=== PATIENT | female | born 1975 | race Caucasian/White ===

== ENCOUNTER 2018-02-16 09:46 | Observation (INO) | payer MEDICAID, SELFPAY ==
[2018-02-16] VITALS (9 sets, daily range): BP systolic 112–166; BP diastolic 71–94; PULSE 61–81; RESP 14–18; TEMP 36.2–36.7; O2SAT 95–100; BMI 33.6; BMI 33.8
--- NOTE | 2018-02-16 09:55 | CT_ITS ---
STUDY: CT ABDOMEN AND PELVIS WITHOUT CONTRAST REASON FOR EXAM: Female, 43 years old. RT FLANK PAIN, HX KS-LITHOTRIPSY RADIATION DOSAGE (If Supplied By Facility): CTDIvol = ( 20.14 ) mGy, DLP = ( 991.22 ) mGycm TECHNIQUE: Transaxial images were obtained from the dome of the diaphragm to the symphysis pubis without oral contrast, and without intravenous contrast. Sagittal and coronal images were reconstructed. Individualized dose optimization techniques were used for this CT. COMPARISON: None. FINDINGS: The visualized lung bases are unremarkable. The visualized portions of the heart are within normal limits. Normal liver. Normal gallbladder and extrahepatic biliary system. Normal spleen. Normal pancreas. Normal bilateral adrenal glands. There is punctate nonobstructing calculus seen in association with the lower pole the right kidney. This calculus measures approximately 1 mm. No other renal calculi are noted. The left kidney has an unremarkable appearance. There is no evidence of hydronephrosis or hydroureter. No ureteral calculi. Normal visualized stomach. Normal small intestine. Normal colon. There is non-visualization of the appendix. Normal abdominal aorta. Normal inferior vena cava. Normal retroperitoneum. Normal urinary bladder. I do note calcification seen in association with the region of the urethra, consider urethral stones. For instance refer to axial image #161 and sagittal image #78. The calcification in this region appears multifocal encompassing an overall area of 1.5 cm transverse and an anterior posterior dimension of 1 cm. Consider also possibility of urethral diverticulum. Urethrogram may be helpful in further evaluation. Normal visualized uterus. There is a dominant left follicle measuring approximately 2.9 cm. Normal abdominal wall. Normal osseous structures. CT/Abdomen/Pelvis without Cont IMPRESSION: Punctate nephrolithiasis of the right kidney. I do not however identify evidence of ureteral stone or obstruction. I do note calcification seen in association with the region of the urethra, consider urethral stones. Electronically Signed: Una Izquierdo MD at 10:55 EDT Tel , Service support ,
[2018-02-16 10:15] LABS: Absolute Lymphocyte Count 1.95 X10^3/ul (0.83-4.51); Absolute Neutrophil Count 4.3 X10^3/uL (2.0-7.7); Basophil# 0.02 X10^3/uL; Basophil% 0.3 % (0-1); Eosinophil# 0.04 X10^3/uL; Eosinophils% 0.6 % (0-5); Hematocrit 38.4 % (37-47); Lymphocyte # 1.95 X10^3/ul (4.0); Lymphocyte % 27.6 % (19-41); Mean Corp Hgb Conc 33.9 g/gl (32-36); Mean Corpuscular Hgb 30.8 pg (27.0-32.0); Mean Platelet Vol. 10.4 fl (6.2-12.0); Monocyte# 0.72 X10^3/uL; Monocyte% 10.2 % (0-10); Neutrophil # 4.32 X10^3/uL (2.7-7.7); Platelet Count 171 K/mm3 (150-450); RBC Distribution Width CV 13.6 % (11.6-14.6); RBC Distribution Width SD 44.7 fl (35.1-43.9); Red Blood Count 4.22 M/mm3 (4.2-5.4); White Blood Count 7.1 K/mm3 (4.4-11.0)
[2018-02-16] MEDS: Ondansetron 4 MG/2 ML Vial IV (10:15)
[2018-02-16] MEDS: 0.9% Normal Saline 1,000 ML 125 ML IV (10:15)
[2018-02-16] MEDS: Morphine 4 MG/ML Syringe IV ×3 (10:15→22:02)
[2018-02-16 10:16] LABS: POSITIVE COUNT NO; POSITIVE DIFFERENTIAL NO; POSITIVE MORPHOLOGY NO
[2018-02-16] MEDS: Ketorolac 30 MG/ML Syringe IV (10:16)
[2018-02-16 10:30] LABS: Anion Gap 9 (5-15); BUN 14 mg/dL (7-18); BUN/Creat Ratio 16.3 RATIO (10-20); Calcium,Total 8.4 mg/dL (8.5-10.1); Chloride 109 mmol/L (98-107); Creatinine, Serum 0.86 mg/dL (0.55-1.02); EST Glomerular Filtration Rate 76 mL/min (>60); Est Glom Filt Rate - Afr Amer 92 mL/min (>60); Estimated Creatinine Clearance 68.33 ml/min; Glucose 87 mg/dL (74-106); Potassium 4.1 mmol/L (3.5-5.1); Sodium Level 142 mmol/L (136-145)
[2018-02-16 10:46] LABS: Bacteria 0 SEEN /hpf (None Seen); Mucous, Urine 0 SEEN /hpf (<or=2+)
[2018-02-16 10:48] LABS: Color, Urine Yellow (Yellow); Glucose, Dipstick Normal (Normal); Ketone-Dipstick Negative (Negative); Leukocyte Esterase-Dipstick Negative /ul (Negative); Nitrite-Dipstick Negative (Negative); Occult Blood-Urine Negative /ul (Negative); Protein-Dipstick Negative (Negative); Urine Bilirubin Dipstick Negative (Negative); Urine Clarity Sl. Cloudy (Clear); Urine Urobilinogen Normal (Normal)
[2018-02-16 11:00] LABS: Red Blood Cells-Urine 0-5 SEEN /hpf (0-5); Squamous Epithelial Cells - UA 0-5 SEEN /hpf (5-10); White Blood Cells 0-5 SEEN /hpf (0-5)
[2018-02-16] MEDS: HYDROmorphone 1 MG/ML Syringe IV ×2 (11:57→13:35)
--- NOTE | 2018-02-16 13:16 | ED.DCSUM_ITS ---
- ER Visit Summary Date of Service: 02/16/18 Chief Complaint: [Right-sided flank pain] History of Present Illness: The patient is a 43 F [presents the emergency department with right-sided flank pain started 4 AM. Patient rates her pain a 7 or 8 out of 10 currently. Patient describes the pain in her right back that radiates to the right abdomen. Patient denies urinary symptoms. Patient has had similar pains in the past with kidney stones. Patient denies any fever. Patient states that she is on the verge of vomiting.] Physical Examination: [HEENT-PERRLA, EOMI. Cranial nerves II through XII grossly intact. TMs clear. Mucous membranes moist. No adenopathy. Cardiovascular-regular rate and rhythm without murmur or ectopy Lungs-clear to auscultation, chest wall stable without crepitus or subcu emphysema Abdomen-normoactive bowel sounds, soft. Patient has tenderness to the right lower quadrant and CVA tenderness on the right. There is no rebound, rigidity, or perineal signs. Extremities-intact ?4, normal range of motion, normal pulses, atraumatic] Test Results: [CBC with differential showed a white count 7.1, hemoglobin 13, hematocrit 38, platelets 171. Chemistries unremarkable. Urinalysis unremarkable. CT flank showed questionable urethral stone versus urethral diverticulum.] Emergency Department Course and Treatment: [Patient was medicated with Toradol, Zofran, and Dilaudid on arrival. Patient continued complaint of pain and was remedicated with Dilaudid. I discussed case with Dr. Duarte who initially asked that we straight cath patient to see if that relieves her symptoms however she continues to complain of significant discomfort. He was able to evaluate her CAT scan and will be willing to admit her for pain control and further management of her symptoms as he feels she may have a ureteral stone as well.] Treatment Plan: [Admit] Disposition: [Admit] Impression: [Intractable right flank pain] This note was generated with [employer] dictation software. It may contain incorrect words, spelling, and punctuation that were not noted in review of the chart prior to signing ED Disposition - Plan for ED Patient: Chief Complaint: Flank Pain Referrals: Care Physician,No Primary [Primary Care Provider] -
--- NOTE | 2018-02-16 13:18 | NURSING ---
MED SURG INTRACTABLE RT FLANK PAIN UNGUR
[2018-02-16] MEDS: 0.9% Normal Saline 1,000 ML 150 ML IV (15:07)
--- NOTE | 2018-02-16 17:54 | HP.PCM_ITS ---
History of Present Illness Date of Admission: 02/16/18 Chief Complaint: Flank pain and right groin pain The patient is a 43 year old female who presented to the emergency room with right flank pain and right groin pain fairly severe 9 out of 10 pain emergency room doctor was not able to discharge the patient home because of the severe pain he was admitted for this reason, CAT scan was done and is question of either a urethral diverticulum or ureteral stone difficult to tell on the CAT scan. 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 Lives: Spouse/ Significant Other Smoking Status: Never smoker Tobacco Use: Non-smoker Alcohol: None Drugs: None - *Family History Maternal History Items: No pertinent history Paternal History Items: No pertinent history Review of Systems Constitutional: Denies: Chills, Fever, Weight Change HEENT: Denies: Head Aches, Sinus Congestion, Sinus Drainage Cardiovascular: Denies: Chest Pain, Palpitations Respiratory: Denies: Cough, Shortness of breath at rest, Sputum production Gastrointestinal: Denies: Abdominal Pain, Nausea, Vomiting Genitourinary: Denies: Dysuria Musculoskeletal: Denies: Joint Pain, Joint Tenderness Skin: Denies: Rash, Wounds Neurological: Denies: Numbness, Tingling, Focal weakness Psychiatric: Denies: Anxiety, Depression, Homicidal Ideations, Suicidal Ideations Hematologic/ Lymphatic: Denies: Easy Bruising, Easy Bleeding VTE Information - Inpt Only VTE Present on Admission: No VTE Mechan Device Prophylaxis: SCD's VTE Pharm Prophylaxis ordered?: No - Physical Exam General: Alert, Oriented x3, Cooperative HEENT: Atraumatic, PERRLA, EOMI, Normocephalic Neck: Supple, No JVD, Negative Carotid Bruits Lungs: Clear to auscultation, Normal air movement Cardiovascular: Regular rate, No murmurs Abdomen: Bowel Sounds Present, Soft, Non Tender Extremities: No edema, Capillary Refill Less than 3 Seconds Skin: No rashes, No breakdown Musculoskeletal: No Tenderness to Palpation of Joints or Extremities Neurological: Cranial nerves II-XII grossly intact Psych/Mental Status: Normal Affect, Appropriate Vital Signs Temp Pulse Resp BP Pulse Ox 98.1 F 72 14 166/83 H 98 02/16/18 14:33 02/16/18 14:33 02/16/18 14:33 02/16/18 14:33 02/16/18 14:33 Oxygen Delivery Method Room Air Weight: 86.6 kg Body Mass Index (BMI) 33.8 Assessment/Plan All Active Problems Atypical chest pain (Acute) 43-year-old female was admitted for intractable pain on the right side CAT scan was somewhat unusual some calcifications in the distal area in the bladder and the ureter difficult to tell if there is a distal ureteral stone or just urethral diverticulum with stones possible she could have a urethral diverticulum with stones and no ureteral stone. If that is the case then we will make sure there is no obstruction and showed to be set up for surgery as an outpatient. If she has an obstructing stone that we will plan the laser the stone place a stent and hopefully discharge her after the procedure. She is aware that it is unclear exactly what the CAT scan shows that some calcifications in the bladder area but unclear if this is a urethral diverticulum or a ureteral calculi and was taken to surgery tonight to do a cystoscopy and evaluation.
[2018-02-16 18:59] LABS: Pregnancy, Serum, hCG Quali. NEGATIVE Negative (0-9 Nonpreg)
--- NOTE | 2018-02-16 19:06 | PCM.OPRPT ---
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 Post-Operative Diagnosis: Same Surgery/Procedure Performed:: Cystoscopy and right retrograde pyelogram Description of Surgical Findings:: 43-year-old female taken back to the operating room at the smooth induction of general anesthesia she was placed supine on the table, the urethra prepped and draped in the usual sterile fashion, and then went into the bladder with a 21 [place] rigid cystourethroscope the entire bladder was normal the left and right ureteral orifice normal cannulated the left ureteral orifice with a Glidewire and a Pollack catheter performed a retrograde pyelogram there is no stones or blockage along the course of the ureter no stones up in the kidney, under fluoroscopy we inspected the pelvis and he could see stones in the ureter diverticular and urethral diverticular stones coming from the urethra, examined the urethra with a 30 and 70? lens and could not see any openings into the diverticulum along the urethra up with him these are very small very hard to find but we can clearly see the stones in the pelvis consistent with calculi in the urethral diverticulum. Drain the bladder patient's anesthetic was reversed currently no obstruction no clear reason why she is having severe flank pain on the right side plan to keep her in the hospital overnight for observation. Type of Anesthesia:: General Drains: none - Admit VTE Documentation VTE Present on Admission: No VTE Mechan Device Prophylaxis: SCD's VTE Pharm Prophylaxis ordered?: No - Flank pain
--- NOTE | 2018-02-16 21:43 | PCM.CONS.GEN ---
Problem List (1) Right flank pain Status: Acute (2) Mood disorder Status: Chronic Reason for Consult Date of Consultation: 02/16/18 Reason for Consultation: Right flank pain. History of Present Illness: Patient is a 43 yo WF admitted for intractable right flank pain. She underwent cystoscopy, findings with urethral diverticulum, however, no findings to explain the pain. She woke up around 4 AM with right flank pain, that is shifting from the right upper back to right lower abdomen. She does not have any diarrhea, had normal bowel movements yesterday. WBC is normal and has no fever. UA is unremarkable. She is complaining of persisting pain, however, she appears reasonably well at the time of examination. 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 Patient denied of any profound fatigue. HEENT: Unremarkable. Patient denied of any dizziness, chronic headache, blurred vision, double vision, dry mouth, or nasal congestion. CV/respiratory: There is no exertional shortness of breath, chest pain, palpitation, wheezing, cough, claudication, cold feet, or peripheral edema. GI: Patient denied any abdominal pain, nausea, vomiting, diarrhea, constipation, melena, or hematochezia. : PSee HPI. Neurology: Unremarkable. There is no history of seizure as an adult. Psychological: Unremarkable. Endocrine: Unremarkable. Musculoskeletal: Unremarkable. Patient Problems: Active and Suspected Problems Right flank pain (Acute) Objective: In general, patient is a well-nourished and developed adult. HEENT: Head is atraumatic, and normocephalic. Pupils are equal, round, and reactive to light and accommodations. Neck is supple. There is no lymphadenopathy, or thyromegaly. Oral mucosa is pink, and moist. There are no lesions. Heart: Auscultation is normal with regular rhythm and rate. There is no extra heart sounds, or murmurs. S1 and S2 are present. Point of maximal impulse is not displaced. Lungs: Lungs are clear to auscultation bilaterally. There is no wheezing, or crackles. Abdomen: Abdominal wall is non-tender, and non-distended. There is no palpable mass or organomegaly. Normoactive bowel sounds are present. The pain is somewhat reproducible with rotation of torso. No significant CVA tenderness. Extremities: There is no cyanosis or clubbing. Peripheral pulses are palpable. There is no edema. Skin: There are no any skin discoloration or lesions. Neurological: CN II - XII are intact. Sensory and motor functions are grossly normal with no obvious deficit. Cerebellar functions are within normal range. Gait was not tested. - Physical Exam Vital Signs Temp Pulse Resp BP Pulse Ox 97.3 F L 61 16 126/89 H 95 02/16/18 20:09 02/16/18 20:09 02/16/18 20:09 02/16/18 20:09 02/16/18 20:09 Oxygen Delivery Method Room Air Weight: 190 lb 14.725 oz Body Mass Index (BMI) 33.8 Intake and Output for Last 24 Hours 02/14/18 02/15/18 02/16/18 23:59 23:59 23:59 Intake Total 1100 / 1100 Output Total 190 / 190 Balance 910 / 910 Laboratory Tests Past 24 Hrs 02/16/18 18:28 Serum , Qual NEGATIVE Diagnostic Data Abdomen/Pelvis CT 02/16/18 09:55 IMPRESSION: Punctate nephrolithiasis of the right kidney. I do not however identify evidence of ureteral stone or obstruction. I do note calcification seen in association with the region of the urethra, consider urethral stones. Electronically Signed: Una Izquierdo MD at 10:55 EDT Tel , Service support , Assessment/Plan All Active Problems Right flank pain (Acute) Atypical chest pain (Acute) Patient is a 43 yo WF admitted for intractable right flank pain. She underwent cystoscopy, findings with urethral diverticulum, however, no findings to explain the pain. She woke up around 4 AM with right flank pain, that is shifting from the right upper back to right lower abdomen. She does not have any diarrhea, had normal bowel movements yesterday. WBC is normal and has no fever. UA is unremarkable. She is complaining of persisting pain, however, she appears reasonably well at the time of examination. #1 Right flank pain. Etiology is not clear. It resembles renal stone, but cystoscopy was unremarkable, and has persisting pain. It is possibly due to muscular pain. Try Robaxin 1000 mg po qid prn. Continue current analgesics, morphine IV prn. #2 Mood disorder. Continue current medications. Code Visit Inpatient E&M: 38889 Subs Hosp L2
--- NOTE | 2018-02-16 21:53 | CON.PCM_ITS ---
Problem List (1) Right flank pain Status: Acute (2) Mood disorder Status: Chronic Reason for Consult Date of Consultation: 02/16/18 Reason for Consultation: Right flank pain. History of Present Illness: Patient is a 43 yo WF admitted for intractable right flank pain. She underwent cystoscopy, findings with urethral diverticulum, however, no findings to explain the pain. She woke up around 4 AM with right flank pain, that is shifting from the right upper back to right lower abdomen. She does not have any diarrhea, had normal bowel movements yesterday. WBC is normal and has no fever. UA is unremarkable. She is complaining of persisting pain, however, she appears reasonably well at the time of examination. 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 Patient denied of any profound fatigue. HEENT: Unremarkable. Patient denied of any dizziness, chronic headache, blurred vision, double vision, dry mouth, or nasal congestion. CV/respiratory: There is no exertional shortness of breath, chest pain, palpitation, wheezing, cough, claudication, cold feet, or peripheral edema. GI: Patient denied any abdominal pain, nausea, vomiting, diarrhea, constipation, melena, or hematochezia. : PSee HPI. Neurology: Unremarkable. There is no history of seizure as an adult. Psychological: Unremarkable. Endocrine: Unremarkable. Musculoskeletal: Unremarkable. Patient Problems: Active and Suspected Problems Right flank pain (Acute) Objective: In general, patient is a well-nourished and developed adult. HEENT: Head is atraumatic, and normocephalic. Pupils are equal, round, and reactive to light and accommodations. Neck is supple. There is no lymphadenopathy, or thyromegaly. Oral mucosa is pink, and moist. There are no lesions. Heart: Auscultation is normal with regular rhythm and rate. There is no extra heart sounds, or murmurs. S1 and S2 are present. Point of maximal impulse is not displaced. Lungs: Lungs are clear to auscultation bilaterally. There is no wheezing, or crackles. Abdomen: Abdominal wall is non-tender, and non-distended. There is no palpable mass or organomegaly. Normoactive bowel sounds are present. The pain is somewhat reproducible with rotation of torso. No significant CVA tenderness. Extremities: There is no cyanosis or clubbing. Peripheral pulses are palpable. There is no edema. Skin: There are no any skin discoloration or lesions. Neurological: CN II - XII are intact. Sensory and motor functions are grossly normal with no obvious deficit. Cerebellar functions are within normal range. Gait was not tested. - Physical Exam Vital Signs Temp Pulse Resp BP Pulse Ox 97.3 F L 61 16 126/89 H 95 02/16/18 20:09 02/16/18 20:09 02/16/18 20:09 02/16/18 20:09 02/16/18 20:09 Oxygen Delivery Method Room Air Weight: 190 lb 14.725 oz Body Mass Index (BMI) 33.8 Intake and Output for Last 24 Hours 02/14/18 02/15/18 02/16/18 23:59 23:59 23:59 Intake Total 1100 / 1100 Output Total 190 / 190 Balance 910 / 910 Laboratory Tests Past 24 Hrs 02/16/18 18:28 Serum , Qual NEGATIVE Diagnostic Data Abdomen/Pelvis CT 02/16/18 09:55 IMPRESSION: Punctate nephrolithiasis of the right kidney. I do not however identify evidence of ureteral stone or obstruction. I do note calcification seen in association with the region of the urethra, consider urethral stones. Electronically Signed: Una Izquierdo MD at 10:55 EDT Tel , Service support , Assessment/Plan All Active Problems Right flank pain (Acute) Atypical chest pain (Acute) Patient is a 43 yo WF admitted for intractable right flank pain. She underwent cystoscopy, findings with urethral diverticulum, however, no findings to explain the pain. She woke up around 4 AM with right flank pain, that is shifting from the right upper back to right lower abdomen. She does not have any diarrhea, had normal bowel movements yesterday. WBC is normal and has no fever. UA is unremarkable. She is complaining of persisting pain, however, she appears reasonably well at the time of examination. #1 Right flank pain. Etiology is not clear. It resembles renal stone, but cystoscopy was unremarkable, and has persisting pain. It is possibly due to muscular pain. Try Robaxin 1000 mg po qid prn. Continue current analgesics, morphine IV prn. #2 Mood disorder. Continue current medications. Code Visit Inpatient E&M: 93498 Subs Hosp L2
[2018-02-16] MEDS: Methocarbamol 500 MG Tablet 1000 MG PO (22:06)
[2018-02-17 00:09] VITALS: BP 104/67; PULSE 72; RESP 16; TEMP 36.4; O2SAT 96
[2018-02-17] MEDS: 0.9% Normal Saline 1,000 ML 150 ML IV (01:25)
[2018-02-17 05:47] VITALS: BP 100/54; PULSE 68; RESP 16; TEMP 36.5; O2SAT 94
[2018-02-17] MEDS: Morphine 4 MG/ML Syringe IV (05:50)
--- NOTE | 2018-02-17 07:24 | PCM.PROGNOTE ---
Patient Problems: Active and Suspected Problems Right flank pain (Acute) Subjective: 43-year-old female with a question of stone taken to surgery yesterday and no stone was found in the ureters she does have some calculi and a urethral diverticulum, told the patient that I do not do surgery to remove these to find a urologist who would want to do this but otherwise her pain is much better unclear to me what caused her pain. She did then state that she was having a drug test coming up and wants to make sure that they are aware that she was in the hospital with pain and was given narcotic medication - Physical Exam General: Alert, Oriented x3, Cooperative HEENT: Atraumatic, PERRLA, EOMI, Normocephalic Neck: Supple, No JVD, Negative Carotid Bruits Lungs: Clear to auscultation, Normal air movement Cardiovascular: Regular rate, No murmurs Abdomen: Bowel Sounds Present, Soft, Non Tender Extremities: No edema, Capillary Refill Less than 3 Seconds Skin: No rashes, No breakdown Musculoskeletal: No Tenderness to Palpation of Joints or Extremities Neurological: Cranial nerves II-XII grossly intact Psych/Mental Status: Normal Affect, Appropriate Vital Signs Temp Pulse Resp BP Pulse Ox 97.7 F L 68 16 100/54 L 94 02/17/18 05:47 02/17/18 05:47 02/17/18 05:47 02/17/18 05:47 02/17/18 05:47 Oxygen Delivery Method Room Air Weight: 86.6 kg Body Mass Index (BMI) 33.8 Intake and Output for Last 24 Hours 02/15/18 02/16/18 02/17/18 23:59 23:59 23:59 Intake Total 1100 / 1100 1997 Output Total 190 / 190 575 / 575 Balance 910 / 910 1423 / 1423 Laboratory Tests Past 24 Hrs 02/16/18 18:28 Serum , Qual NEGATIVE Medical Necessity - Tobacco Use Smoking Status: Never smoker Tobacco Use: Non-smoker Assessment/Plan All Active Problems Right flank pain (Acute) Atypical chest pain (Acute) 43-year-old female came in with severe flank pain no kidney stone was found she was given narcotic medication to control her flank pain but etiology was completely unclear. Today we will send her home with no pain medicine she is 100% better. Abdomen soft and benign. She wanted to make sure that it was documented quite clearly that she received narcotic medication while in the hospital that she is having a drug test coming up I will told her that I will document this quite clearly in the notes.
--- NOTE | 2018-02-17 07:26 | PCM.DC.SUM ---
Discharge Date and Diagnosis - Problem List Patient Problems: Active and Suspected Problems Right flank pain (Acute) Date of Admission: 02/16/18 Date of Discharge: 02/17/18 - Primary Discharge Diagnosis Active and Suspected Problems Right flank pain (Acute) - Secondary Discharge Diagnosis Chronic Problems Mood disorder (Chronic) Hospital Course and Treatment Imaging Results: 02/17/18 06:00 MRI Pelvis [Pelvis W/Contrast] [MRI] Urgent Operations: None, - - Cystoscopy and retrograde. 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 Did a retrograde That was normal. Admitted overnight for observation. This morning her pain is completely gone we will discharge patient home. She also wanted to make sure it was documented that she received narcotic medication while in the hospital for her pain which I am happy to do. And she also states that she has a drug test coming up. Discharge Diet: Light diet - advance as tolerated Home Medications: Medications to take at Discharge Bupropion HCl [Wellbutrin Xl] 300 mg PO DAILY 02/16/18 Buspirone HCl 20 mg PO BID 02/16/18 Fluoxetine [Prozac] 40 mg PO DAILY 02/16/18 Naproxen [Naprosyn] 500 mg PO BID PRN PRN 02/16/18 Risperidone [Risperdal] 2 mg PO BID 02/16/18 Primary Care Physician: Care Physician,No Primary [Primary Care Provider] - Medical Necessity - Tobacco Use Smoking Status: Never smoker Tobacco Use: Non-smoker Meaningful Use Info Meaningful Use Diagnoses (Choose all that apply): None applicable
--- NOTE | 2018-02-17 09:43 | PCA ---
rn in with pt
[2018-02-17 10:20] VITALS: BP 104/66; PULSE 79; RESP 18; TEMP 36.9; O2SAT 96
== END 2018-02-17 10:09 | disposition home or self-care (01) ==
LOC: ED 14:01 → MS2 14:08
PROVIDERS: Admitting Provider Urology; Emergency Provider Emergency Medicine; Visit Provider Internal Medicine
PROC: 0TJ98ZZ Inspection of Ureter, Via Natural or Artificial Opening Endoscopic (ICD-10-PCS; CPT 52352; principal; 2018-02-16 18:00)
DX: N21.1 Calculus in urethra (principal); R10.9 Unspecified abdominal pain; N36.1 Urethral diverticulum; F39 Unspecified mood [affective] disorder; Z79.899 Other long term (current) drug therapy; F43.10 Post-traumatic stress disorder, unspecified
CPT/HCPCS: 52005; 74176; 76000; 80048; 81001; 84703; 85025; 96361; 96374; 96375; 96376; 99218; 99284; J7030; P9612; A4216; C1769; G0378; J2405

== ENCOUNTER 2018-02-20 22:12 | Emergency (ER) | payer MEDICAID, SELFPAY ==
[2018-02-20 22:13] VITALS: BP 130/98; PULSE 71; RESP 15; TEMP 36.7; BMI 30.1
--- NOTE | 2018-02-20 22:30 | US_ITS ---
STUDY: ULTRASOUND TRANSVAGINAL CLINICAL: Female, 43 years old. Pelvic pain TECHNIQUE: Transvaginal COMPARISON: None. FINDINGS: Normal uterine size measuring 9.3 x 5.5 x 1.9 cm in maximal craniocaudal dimension. There are no myometrial masses. Normal endometrial thickness measuring 8.5 mm. There are no endometrial masses, and there is no fluid in the endometrial cavity. Normal uterine cervix. Normal right ovary, measuring 2.6 x 1.4 x 1.7 cm. There are multiple follicles without a dominant cyst. There is a hypoechoic structure in the right ovary measures 1 cm in diameter most likely represent an involuting cyst. Normal left ovary, measuring 3.9 x 2.8 x 0.8 cm. There are multiple follicles. There is a cyst in the left ovary measures 3.2 x 2.8 x 2.1 cm. There is no free fluid in the pelvis. Polycystic ovary disease: No. US/Transvaginal Non- IMPRESSION: There is a cyst in the left ovary measures 3.2 x 2.8 x 2.1 cm. Electronically Signed: Mark Robles MD at 1:25 EDT Tel , Service support ,
--- NOTE | 2018-02-20 22:33 | ED.DCSUM_ITS ---
- ER Visit Summary Date of Service: 02/20/18 Chief Complaint: [Cough and shortness of breath] History of Present Illness: The patient is a 43 F [presents the emergency department with complaint of a cough ?1 week. Patient states that she was seen at the [facility] ER 2 days ago and started on Zithromax, [place], and albuterol. Patient states that she does not feel like she is any better. Patient denies any fever. Cough is been nonproductive. Patient states that she has a coworker that is sick with the flu. Patient has had a mild headache. She denies any body aches. Patient also has lost her voice but denies sore throat.] Physical Examination: [HEENT-PERRLA, EOMI. Cranial nerves II through XII grossly intact. TMs clear. Mucous membranes moist. No adenopathy. Cardiovascular-regular rate and rhythm without murmur or ectopy Lungs-good aeration bilaterally, patient has expiratory wheezes bilaterally. No tachypnea or accessory muscle use. No retractions. Abdomen-normoactive bowel sounds, soft, nontender, no rebound or rigidity, no peritoneal signs. Extremities-intact ?4, normal range of motion, normal pulses, atraumatic] Test Results: [] Emergency Department Course and Treatment: [] Treatment Plan: [] Disposition: [] Impression: [] This note was generated with [employer] dictation software. It may contain incorrect words, spelling, and punctuation that were not noted in review of the chart prior to signing ED Disposition - Plan for ED Patient: Chief Complaint: Complaint Referrals: Alexandria Mejia, ARIANNA-C [Primary Care Provider] -
[2018-02-20] MEDS: Ketorolac 30 MG/ML Syringe IV (22:45)
[2018-02-20] MEDS: Morphine 4 MG/ML Syringe IV (22:45)
[2018-02-20] MEDS: 0.9% Normal Saline 1,000 ML 125 ML IV (22:45)
[2018-02-20] MEDS: Ondansetron 4 MG/2 ML Vial IV (22:45)
[2018-02-20 23:04] LABS: Absolute Lymphocyte Count 3.27 X10^3/ul (0.83-4.51); Absolute Neutrophil Count 7.1 X10^3/uL (2.0-7.7); Basophil# 0.04 X10^3/uL; Basophil% 0.3 % (0-1); Eosinophil# 0.08 X10^3/uL; Eosinophils% 0.7 % (0-5); Hematocrit 38.9 % (37-47); Hemoglobin 13.3 g/dl (12.0-15.0); Lymphocyte # 3.27 X10^3/ul (4.0); Mean Corp Hgb Conc 34.2 g/gl (32-36); Mean Corpuscular Hgb 31.4 pg (27.0-32.0); Mean Platelet Vol. 10.8 fl (6.2-12.0); Monocyte# 1.16 X10^3/uL; Monocyte% 9.9 % (0-10); Neutrophil # 7.06 X10^3/uL (2.7-7.7); Neutrophil % 60.6 % (47-70); Platelet Count 216 K/mm3 (150-450); RBC Distribution Width CV 13.4 % (11.6-14.6); RBC Distribution Width SD 44.2 fl (35.1-43.9); Red Blood Count 4.23 M/mm3 (4.2-5.4); White Blood Count 11.7 K/mm3 (4.4-11.0)
[2018-02-20 23:06] LABS: POSITIVE COUNT NO; POSITIVE DIFFERENTIAL NO; POSITIVE MORPHOLOGY NO
[2018-02-20 23:11] LABS: Anion Gap 6 (5-15); BUN 20 mg/dL (7-18); BUN/Creat Ratio 20.1 RATIO (10-20); Calcium,Total 8.6 mg/dL (8.5-10.1); Chloride 107 mmol/L (98-107); Creatinine, Serum 0.99 mg/dL (0.55-1.02); EST Glomerular Filtration Rate 64 mL/min (>60); Est Glom Filt Rate - Afr Amer 78 mL/min (>60); Estimated Creatinine Clearance 59.36 ml/min; Glucose 82 mg/dL (74-106); Potassium 3.8 mmol/L (3.5-5.1); Sodium Level 138 mmol/L (136-145)
[2018-02-20 23:18] LABS: Pregnancy, Serum, hCG Quali. NEGATIVE Negative (0-9 Nonpreg)
[2018-02-21 00:37] LABS: Bacteria 0 SEEN /hpf (None Seen); Mucous, Urine 0 SEEN /hpf (<or=2+); Red Blood Cells-Urine 0 SEEN /hpf (0-5); White Blood Cells 0 SEEN /hpf (0-5)
[2018-02-21 00:44] LABS: Color, Urine Yellow (Yellow); Glucose, Dipstick Normal (Normal); Ketone-Dipstick Negative (Negative); Leukocyte Esterase-Dipstick 25 /ul (Negative); Nitrite-Dipstick Negative (Negative); Occult Blood-Urine Negative /ul (Negative); Protein-Dipstick Negative (Negative); Urine Bilirubin Dipstick Negative (Negative); Urine Clarity Clear (Clear); Urine Urobilinogen Normal (Normal)
[2018-02-21 00:58] LABS: Squamous Epithelial Cells - UA 5-10 SEEN /hpf (5-10)
[2018-02-21 01:59] VITALS: BP 125/82; PULSE 63; RESP 15; O2SAT 97
--- NOTE | 2018-02-21 03:03 | ED.VISSUMM ---
- ER Visit Summary Date of Service: 02/21/18 Chief Complaint: Right abdomen/pelvic pain [] History of Present Illness: The patient is a 43 F [presents to the emergency department with complaint of right lower quadrant abdominal pain ?4 days. Patient was seen in the emergency department about 4 days ago by myself and had complete workup including CT scan of the abdomen and pelvis as well as lab workup. Patient was admitted for intractable right-sided flank pain with out definite kidney stone noted. On her CT there was a bladder diverticulum and admitted the patient and took patient to the OR where he was noted that she did not have a ureteral stone. Patient was discharged the following day and states that her pain never completely resolved. Patient complains now some mild dysuria. She denies any fever. Patient states she started vomiting around 4 PM and is vomited ?3 times. Patient's last menstrual period was about a week ago. Patient states that she has been taking Aleve and Tylenol without resolution of her pain. Patient does have known history of kidney stones. Physical Examination: [HEENT-PERRLA, EOMI. Cranial nerves II through XII grossly intact. TMs clear. Mucous membranes moist. No adenopathy. Cardiovascular-regular rate and rhythm without murmur or ectopy Lungs-clear to auscultation, chest wall stable without crepitus or subcu emphysema Abdomen-normoactive bowel sounds, soft. Patient has some tenderness to palpation inferior to McBurney's point on the right. There is no rebound, rigidity, or perineal signs. Patient has some mild CVA tenderness on the right. Extremities-intact ?4, normal range of motion, normal pulses, atraumatic] Test Results: [CBC with differential obtained showed a white blood cell count of 11.7, hemoglobin 13, hematocrit 39, platelets 216. Chemistries unremarkable. Urinalysis was normal. HCG was negative. Pelvic ultrasound showed a left ovarian cyst measuring 3.2 x 2.8 x 2.1 cm.] Emergency Department Course and Treatment: [Patient was medicated with Dilaudid 1 mg IV and 4 mg Zofran IV. She had good pain relief.] Treatment Plan: [Patient will be given a prescription for [place] for pain and advised to follow-up with her primary care physician and I will also refer her to follow-up with DIGITAL STRATEGIST SENIOR MANAGER if her symptoms do not improve. At this point I do not feel any further imaging is indicated and I do not feel her exam and history consistent with appendicitis.] Disposition: [Discharged home in stable condition]. Patient advised to return if fever, vomiting, or condition should worsen in any way. Impression: [Abdominal pain-etiology uncertain] This note was generated with [employer] dictation software. It may contain incorrect words, spelling, and punctuation that were not noted in review of the chart prior to signing ED Disposition - Plan for ED Patient: Chief Complaint: Complaint Referrals: Alexandria Mejia, SENIOR LIBRARIAN-C [Primary Care Provider] -
--- NOTE | 2018-02-21 03:06 | ED.DCSUM_ITS ---
- ER Visit Summary Date of Service: 02/21/18 Chief Complaint: Right abdomen/pelvic pain [] History of Present Illness: The patient is a 43 F [presents to the emergency department with complaint of right lower quadrant abdominal pain ?4 days. Patient was seen in the emergency department about 4 days ago by myself and had complete workup including CT scan of the abdomen and pelvis as well as lab workup. Patient was admitted for intractable right-sided flank pain with out definite kidney stone noted. On her CT there was a bladder diverticulum and admitted the patient and took patient to the OR where he was noted that she did not have a ureteral stone. Patient was discharged the following day and states that her pain never completely resolved. Patient complains now some mild dysuria. She denies any fever. Patient states she started vomiting around 4 PM and is vomited ?3 times. Patient's last menstrual period was about a week ago. Patient states that she has been taking Aleve and Tylenol without resolution of her pain. Patient does have known history of kidney stones. Physical Examination: [HEENT-PERRLA, EOMI. Cranial nerves II through XII grossly intact. TMs clear. Mucous membranes moist. No adenopathy. Cardiovascular-regular rate and rhythm without murmur or ectopy Lungs-clear to auscultation, chest wall stable without crepitus or subcu emphysema Abdomen-normoactive bowel sounds, soft. Patient has some tenderness to palpation inferior to McBurney's point on the right. There is no rebound, rigidity, or perineal signs. Patient has some mild CVA tenderness on the right. Extremities-intact ?4, normal range of motion, normal pulses, atraumatic] Test Results: [CBC with differential obtained showed a white blood cell count of 11.7, hemoglobin 13, hematocrit 39, platelets 216. Chemistries unremarkable. Urinalysis was normal. HCG was negative. Pelvic ultrasound showed a left ovarian cyst measuring 3.2 x 2.8 x 2.1 cm.] Emergency Department Course and Treatment: [Patient was medicated with Dilaudid 1 mg IV and 4 mg Zofran IV. She had good pain relief.] Treatment Plan: [Patient will be given a prescription for [place] for pain and advised to follow-up with her primary care physician and I will also refer her to follow-up with BAGGAGE CHECKER if her symptoms do not improve. At this point I do not feel any further imaging is indicated and I do not feel her exam and history consistent with appendicitis.] Disposition: [Discharged home in stable condition]. Patient advised to return if fever, vomiting, or condition should worsen in any way. Impression: [Abdominal pain-etiology uncertain] This note was generated with [email or web address] dictation software. It may contain incorrect words, spelling, and punctuation that were not noted in review of the chart prior to signing ED Disposition - Plan for ED Patient: Chief Complaint: Complaint Referrals: Alexandria Mejia, COSMETIC MAKER-C [Primary Care Provider] -
--- NOTE | 2018-02-21 03:06 | ED.DEP ---
ED Disposition - Plan for ED Patient: Chief Complaint: Complaint Instructions: ED Abdominal Pain Unkn Cause Prescriptions: Hydrocodone Bitart/Apap 5-325 [[place] 5MG-325MG] 1 tab PO Q4H PRN PRN 2 Days #10 tab PRN Reason: Pain Referrals: Alexandria Mejia, TRANSPORTATION CLERK-C [Primary Care Provider] - 3-5 Days
--- NOTE | 2018-02-21 03:08 | DCINST.ED_ITS ---
ED Disposition - Plan for ED Patient: Chief Complaint: Complaint Instructions: ED Abdominal Pain Unkn Cause Prescriptions: Hydrocodone Bitart/Apap 5-325 [[place] 5MG-325MG] 1 tab PO Q4H PRN PRN 2 Days #10 tab PRN Reason: Pain Referrals: Alexandria Mejia, CUSTOMER PROJECT MANAGER-C [Primary Care Provider] - 3-5 Days
--- NOTE | 2018-02-21 03:08 | ED.DEP ---
ED Disposition - Plan for ED Patient: Chief Complaint: Complaint Instructions: ED Abdominal Pain Unkn Cause Prescriptions: Hydrocodone Bitart/Apap 5-325 [[place] 5MG-325MG] 1 tab PO Q4H PRN PRN 2 Days #10 tab PRN Reason: Pain Referrals: Alexandria Mejia, POULTRY FARMWORKER-C [Primary Care Provider] - 3-5 Days
--- NOTE | 2018-02-21 03:09 | DCINST.ED_ITS ---
ED Disposition - Plan for ED Patient: Chief Complaint: Complaint Instructions: ED Abdominal Pain Unkn Cause Prescriptions: Hydrocodone Bitart/Apap 5-325 [[place] 5MG-325MG] 1 tab PO Q4H PRN PRN 2 Days #10 tab PRN Reason: Pain Referrals: Alexandria Mejia, PRODUCTION TESTER-C [Primary Care Provider] - 3-5 Days
[2018-02-21 03:13] VITALS: BP 127/80; PULSE 63; RESP 15; O2SAT 97
[2018-02-21] MEDS: HYDROcodone Bitartrate/Apap 5/325 Tablet PO (03:13)
== END 2018-02-21 03:18 | disposition home or self-care (01) ==
PROVIDERS: Emergency Provider Emergency Medicine; Family Provider Nurse Practitioner Family; PCP Nurse Practitioner Family
DX: R10.31 Right lower quadrant pain (principal); R30.0 Dysuria; R11.10 Vomiting, unspecified; N83.202 Unspecified ovarian cyst, left side; N32.3 Diverticulum of bladder; Z87.442 Personal history of urinary calculi; Z79.899 Other long term (current) drug therapy
CPT/HCPCS: 76830; 80048; 81001; 84703; 85025; 93976; 96361; 96374; 96375; 99283; J7030; J2405

== ENCOUNTER 2018-02-28 02:25 | Emergency (ER) | payer MEDICAID, SELFPAY ==
[2018-02-28 02:29] VITALS: BP 124/111; PULSE 78; RESP 19; O2SAT 99; BMI 30.1
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
[2018-02-28 02:54] VITALS: BP 163/101; PULSE 96; RESP 17; O2SAT 96
[2018-02-28] MEDS: Morphine 4 MG/ML Syringe IM (03:06)
[2018-02-28] MEDS: Ondansetron 4 MG/2 ML Vial IV (03:06)
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
[2018-02-28 04:27] VITALS: BP 111/64; PULSE 79; RESP 17; O2SAT 91
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
[2018-02-28 06:35] VITALS: PULSE 76; RESP 16; O2SAT 98
== END 2018-02-28 06:35 | disposition home or self-care (01) ==
LOC: ED 03:10
PROVIDERS: Emergency Provider Emergency Medicine; Family Provider Nurse Practitioner Family; PCP Nurse Practitioner Family
DX: S32.2XXA Fracture of coccyx, initial encounter for closed fracture (principal); F10.129 Alcohol abuse with intoxication, unspecified; Y90.9 Presence of alcohol in blood, level not specified; M25.522 Pain in left elbow; M25.562 Pain in left knee; M54.2 Cervicalgia; V89.2XXA Person injured in unspecified motor-vehicle accident, traffic, initial encounter; Y93.9 Activity, unspecified; Y92.9 Unspecified place or not applicable; F32.9 Major depressive disorder, single episode, unspecified; F41.9 Anxiety disorder, unspecified; Z87.442 Personal history of urinary calculi; Z79.899 Other long term (current) drug therapy
CPT/HCPCS: 70450; 72072; 72100; 72125; 73080; 73564; 80320; 96372; 96374; 99285; J7030; G0480; J2405

== ENCOUNTER 2018-03-18 13:30 | Emergency (ER) | payer MEDICAID, SELFPAY ==
[2018-03-18 13:31] VITALS: BP 123/79; PULSE 67; RESP 16; TEMP 36.6; O2SAT 97; BMI 33.5
--- NOTE | 2018-03-18 13:55 | CT_ITS ---
STUDY: CT ABDOMEN AND PELVIS WITHOUT CONTRAST REASON FOR EXAM: Female, 43 years old. Flank pain and hematuria. History of renal calculi. RADIATION DOSAGE (If Supplied By Facility): CTDIvol = ( 18.87 ) mGy, DLP = ( 886.48 ) mGycm TECHNIQUE: Transaxial images were obtained from the dome of the diaphragm to the symphysis pubis without oral contrast, and without intravenous contrast. Sagittal and coronal images were reconstructed. Individualized dose optimization techniques were used for this CT. COMPARISON: Comparison is made with prior examination dated February 16, 2018. FINDINGS: The visualized lung bases are unremarkable. The visualized portions of the heart are within normal limits. Normal liver. Normal gallbladder and extrahepatic biliary system. Normal spleen. Normal pancreas. Normal bilateral adrenal glands. Normal right kidney. Normal left kidney. Normal visualized stomach. Normal small intestine. Normal colon. The appendix is visualized and appears normal. Normal abdominal aorta. Normal inferior vena cava. Normal retroperitoneum. Normal urinary bladder. Metallic density is seen in the region of the base of the bladder at the level of the urethra. This may represent postsurgical change. Clinical correlation is recommended. Normal abdominal wall. Normal osseous structures. CT/Abdomen/Pelvis without Cont IMPRESSION: Stable examination. No acute abnormality is seen. Electronically Signed: Samuel Robert MD at 15:09 EDT Tel [phone], Service support ,
[2018-03-18 14:07] LABS: Mucous, Urine 0 SEEN /hpf (<or=2+)
[2018-03-18 14:09] LABS: Color, Urine Yellow (Yellow); Glucose, Dipstick Normal (Normal); Ketone-Dipstick Negative (Negative); Leukocyte Esterase-Dipstick 25 /ul (Negative); Nitrite-Dipstick Negative (Negative); Occult Blood-Urine 250 /ul (Negative); Protein-Dipstick 15 mg/dl (Negative); Urine Bilirubin Dipstick Negative (Negative); Urine Clarity Sl. Cloudy (Clear); Urine Urobilinogen Normal (Normal); Urine pH 6.5 (5.0 - 8.0)
[2018-03-18] MEDS: Ketorolac 30 MG/ML Syringe IV (14:09)
[2018-03-18] MEDS: 0.9% Normal Saline 1,000 ML 250 ML IV (14:09)
[2018-03-18] MEDS: Ondansetron 4 MG/2 ML Vial IV (14:09)
[2018-03-18 14:17] LABS: Bacteria 1+ /hpf (None Seen); Red Blood Cells-Urine 25-50 SEEN /hpf (0-5); Squamous Epithelial Cells - UA 0-5 SEEN /hpf (5-10); White Blood Cells 0-5 SEEN /hpf (0-5)
[2018-03-18 14:18] LABS: Absolute Lymphocyte Count 2.08 X10^3/ul (0.83-4.51); Absolute Neutrophil Count 5.5 X10^3/uL (2.0-7.7); Basophil# 0.03 X10^3/uL; Basophil% 0.4 % (0-1); Eosinophil# 0.06 X10^3/uL; Eosinophils% 0.7 % (0-5); Hematocrit 39.4 % (37-47); Hemoglobin 13.2 g/dl (12.0-15.0); Lymphocyte # 2.08 X10^3/ul (4.0); Lymphocyte % 25.2 % (19-41); Mean Corp Hgb Conc 33.5 g/gl (32-36); Mean Corpuscular Hgb 30.6 pg (27.0-32.0); Mean Corpuscular Volume 91.2 fL (81-99); Mean Platelet Vol. 10.8 fl (6.2-12.0); Monocyte# 0.63 X10^3/uL; Monocyte% 7.6 % (0-10); Neutrophil # 5.45 X10^3/uL (2.7-7.7); Neutrophil % 65.9 % (47-70); POSITIVE COUNT NO; POSITIVE DIFFERENTIAL NO; POSITIVE MORPHOLOGY NO; Platelet Count 228 K/mm3 (150-450); RBC Distribution Width CV 13.1 % (11.6-14.6); RBC Distribution Width SD 43.5 fl (35.1-43.9); Red Blood Count 4.32 M/mm3 (4.2-5.4); White Blood Count 8.3 K/mm3 (4.4-11.0)
[2018-03-18 14:28] LABS: Anion Gap 7 (5-15); BUN 13 mg/dL (7-18); BUN/Creat Ratio 13.3 RATIO (10-20); Calcium,Total 8.5 mg/dL (8.5-10.1); Chloride 108 mmol/L (98-107); Creatinine, Serum 0.98 mg/dL (0.55-1.02); EST Glomerular Filtration Rate 65 mL/min (>60); Est Glom Filt Rate - Afr Amer 79 mL/min (>60); Estimated Creatinine Clearance 59.97 ml/min; Glucose 79 mg/dL (74-106); Potassium 3.9 mmol/L (3.5-5.1); Sodium Level 138 mmol/L (136-145)
[2018-03-18 14:32] LABS: Pregnancy, Serum, hCG Quali. NEGATIVE Negative (0-9 Nonpreg)
--- NOTE | 2018-03-18 15:26 | ED.DCSUM_ITS ---
- ER Visit Summary Date of Service: 03/18/18 Chief Complaint: Left flank pain History of Present Illness: The patient is a 43 F who sees Fanta Mejia and is seen Dr. Duarte in the past. 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 She is in the process of getting in to see them. She reports she has left flank pain that began 2 days ago. Is a sharp pain Zeta 10 at worst and 710 currently. Is worsened by nothing relieved by nothing. She reports she been nausea and vomited once. No blood or emesis. Last bowel movement was yesterday. She has had no melena or hematochezia. She has had dysuria, frequency, and hematuria for 1 day. She denies any fever or chills. Physical Examination: Vitals: Stable. Afebrile. General: Well-nourished and well-developed. Head: Normocephalic atraumatic. Neck: Supple, no lymphadenopathy. No JVD. Nontender. Cardiovascular: Regular rate and rhythm. No murmurs. Respiratory: No respiratory distress. Clear to auscultation bilaterally. Abdominal: Soft, moderate left lower quadrant tenderness to palpation, nondistended, normal bowel sounds. No guarding, rebound, or peritoneal signs. Back: Mild left CVA tenderness. Extremities: Nontender, no edema. Skin: Normal color, no rash. Neurologic: Alert and oriented ?3. Cranial nerves II through XII are intact. Normal strength and sensation. Psych: Normal affect. Test Results: CBC is normal. Chem-7 is more for chloride 108. UA shows 25-50 red blood cells and 1+ bacteria. test is negative. CT flank is unchanged from prior last month. Has a normal appendix and normal kidneys. There is a calcification in the area of her urethra consistent with a urethral diverticulum. Emergency Department Course and Treatment: Patient was treated Toradol and Zofran IV. She is resting comfortably. Treatment Plan: Patient was discussed with Dr. Duarte. There is no further treatment is needed at this time for the urethral diverticulum other than follow -up with a urologist who cares for these. She instructed follow-up with urology 1 as soon as possible. Return to the emergency department for any worsening symptoms. Disposition: To home in improved and stable condition. Impression: 1. Urethral diverticulum. 2. Hematuria. This note was generated with [employer] dictation software. It may contain incorrect words, spelling, and punctuation that were not noted in review of the chart prior to signing ED Disposition - Plan for ED Patient: Disposition: Home or Assisted Living Chief Complaint: Flank Pain Instructions: ED Hematuria Additional Instructions: Follow up with Urology one as soon as possible.
[2018-03-18 15:34] VITALS: BP 125/74; PULSE 65; RESP 17; O2SAT 95
== END 2018-03-18 15:52 | disposition home or self-care (01) ==
PROVIDERS: Emergency Provider Emergency Medicine; Family Provider Nurse Practitioner Family; PCP Nurse Practitioner Family
DX: N36.1 Urethral diverticulum (principal); R31.9 Hematuria, unspecified; F32.9 Major depressive disorder, single episode, unspecified; F41.9 Anxiety disorder, unspecified; Z87.442 Personal history of urinary calculi; Z79.899 Other long term (current) drug therapy
CPT/HCPCS: 74176; 80048; 81001; 84703; 85025; 87077; 87086; 87088; 96361; 96374; 96375; 99284; J7030; A4216; J2405

== ENCOUNTER 2018-05-13 14:56 | Emergency (ER) | payer MEDICAID, SELFPAY ==
[2018-05-13 14:57] VITALS: BP 119/81; PULSE 80; RESP 16; TEMP 37; O2SAT 97; BMI 34.5
[2018-05-13 15:39] LABS: Bacteria 0 SEEN /hpf (None Seen); Mucous, Urine 0 SEEN /hpf (<or=2+)
--- NOTE | 2018-05-13 15:41 | CT_ITS ---
STUDY: CT ABDOMEN AND PELVIS WITHOUT CONTRAST REASON FOR EXAM: Female, 43 years old. Lower abdominal pain. Kidney stones. RADIATION DOSAGE (If Supplied By Facility): CTDIvol = ( 14.57 ) mGy, DLP = ( 674.44 ) mGycm TECHNIQUE: Transaxial images were obtained from the dome of the diaphragm to the symphysis pubis without oral contrast, and without intravenous contrast. Sagittal and coronal images were reconstructed. Individualized dose optimization techniques were used for this CT. COMPARISON: 03/18/2018. FINDINGS: The visualized lung bases are unremarkable. The visualized portions of the heart are within normal limits. Normal liver. The gallbladder is contracted. Normal spleen. Normal pancreas. Normal bilateral adrenal glands. There is a 1 mm stone in the lower pole of the right kidney. The kidneys are otherwise unremarkable. There is no hydronephrosis. The ureters are normal in course and caliber. No ureteral stones are seen. The aorta is normal in caliber. There is no evidence of bowel obstruction. The appendix is not seen. Mesenteric stranding is noted anterior and superior to the transverse colon, demonstrated on series 1002, images 65-70. This appearance is most consistent with epiploic appendagitis. Omental torsion is considered less likely. The colon is otherwise unremarkable. Bladder is poorly distended. Normal visualized uterus. There is a 3.8 cm left ovarian cyst. Normal abdominal wall. Normal osseous structures. CT/Abdomen/Pelvis without Cont IMPRESSION: 1. Mesenteric stranding associated with the transverse colon, most consistent with epiploic appendagitis. 2. Left ovarian cyst, likely physiologic but larger than a typical follicular cyst. 3. Nonobstructing right renal stone. No evidence of obstructive uropathy. Electronically Signed: Juliet Sibley MD at 17:27 EDT Tel , Service support ,
--- NOTE | 2018-05-13 15:42 | ED.VISSUMM ---
- ER Visit Summary Date of Service: 05/13/18 Chief Complaint: Left flank pain History of Present Illness: The patient is a 43 F started with left flank pain yesterday. She states that been radiating to the left side of the abdomen. She was seen by her PCP 2 days ago for some dysuria and bladder pain and was started on Bactrim. She denies having fevers. She does have some hematuria. She does have a history of kidney stones. She has not taken anything for this at home. Physical Examination: Vital signs reviewed. HEENT exam unremarkable. Heart is regular rate and rhythm without murmurs. Lungs are clear to auscultation. Abdomen is soft with left-sided abdominal tenderness there is no CVA tenderness. Extremities reveal no edema. Skin exam normal. Neurologic exam normal. Test Results: Laboratory studies normal. Urinalysis reveals greater than 100 red blood cells. 0-5 white blood cells. CAT scan reveals ovarian cyst with epiploic appendagitis. There is a renal stone but there is no stone in the ureter. Emergency Department Course and Treatment: Patient was given Toradol and morphine. She feels better. There are no signs of any moving kidney stones. I will give her naproxen for pain. She will continue her Bactrim. She will follow-up with her PCP Treatment Plan: [] Disposition: Discharge Impression: Left flank pain, hematuria This note was generated with [employer] dictation software. It may contain incorrect words, spelling, and punctuation that were not noted in review of the chart prior to signing ED Disposition - Plan for ED Patient: Chief Complaint: Flank Pain Referrals: Alexandria Mejia, ARIANNA-C [Primary Care Provider] -
[2018-05-13 15:47] LABS: Color, Urine Yellow (Yellow); Glucose, Dipstick Normal (Normal); Ketone-Dipstick Negative (Negative); Leukocyte Esterase-Dipstick 25 /ul (Negative); Nitrite-Dipstick Negative (Negative); Occult Blood-Urine 250 /ul (Negative); Protein-Dipstick 30 mg/dl (Negative); Specific Gravity, Urine 1.025 (1.002-1.030); Urine Bilirubin Dipstick Negative (Negative); Urine Clarity Cloudy (Clear); Urine Urobilinogen Normal (Normal)
[2018-05-13 15:56] LABS: Red Blood Cells-Urine > 100 SEEN /hpf (0-5); Squamous Epithelial Cells - UA 5-10 SEEN /hpf (5-10); White Blood Cells 0-5 SEEN /hpf (0-5)
[2018-05-13] MEDS: Ketorolac 30 MG/ML Syringe IV (15:57)
[2018-05-13 15:59] LABS: Absolute Lymphocyte Count 2.04 X10^3/ul (0.83-4.51); Absolute Neutrophil Count 6.7 X10^3/uL (2.0-7.7); Basophil# 0.04 X10^3/uL; Basophil% 0.4 % (0-1); Eosinophil# 0.04 X10^3/uL; Eosinophils% 0.4 % (0-5); Hematocrit 40.3 % (37-47); Hemoglobin 13.9 g/dl (12.0-15.0); Lymphocyte # 2.04 X10^3/ul (4.0); Lymphocyte % 20.9 % (19-41); Mean Corp Hgb Conc 34.5 g/gl (32-36); Mean Corpuscular Hgb 30.7 pg (27.0-32.0); Mean Platelet Vol. 10.5 fl (6.2-12.0); Monocyte# 0.86 X10^3/uL; Monocyte% 8.8 % (0-10); Neutrophil # 6.74 X10^3/uL (2.7-7.7); Neutrophil % 68.9 % (47-70); Platelet Count 241 K/mm3 (150-450); RBC Distribution Width CV 12.3 % (11.6-14.6); RBC Distribution Width SD 39.6 fl (35.1-43.9); Red Blood Count 4.53 M/mm3 (4.2-5.4); White Blood Count 9.8 K/mm3 (4.4-11.0)
[2018-05-13 16:00] LABS: POSITIVE COUNT NO; POSITIVE DIFFERENTIAL NO; POSITIVE MORPHOLOGY NO
[2018-05-13 16:08] LABS: Anion Gap 8 (5-15); BUN 16 mg/dL (7-18); BUN/Creat Ratio 15.8 RATIO (10-20); Calcium,Total 9.5 mg/dL (8.5-10.1); Chloride 103 mmol/L (98-107); Creatinine, Serum 1.01 mg/dL (0.55-1.02); EST Glomerular Filtration Rate 63 mL/min (>60); Est Glom Filt Rate - Afr Amer 76 mL/min (>60); Estimated Creatinine Clearance 58.19 ml/min; Glucose 85 mg/dL (74-106); Potassium 3.9 mmol/L (3.5-5.1); Sodium Level 141 mmol/L (136-145)
[2018-05-13 16:14] LABS: Pregnancy, Serum, hCG Quali. NEGATIVE Negative (0-9 Nonpreg)
[2018-05-13 17:00] VITALS: RESP 16
[2018-05-13] MEDS: Morphine 4 MG/ML Syringe IV (17:10)
--- NOTE | 2018-05-13 17:36 | ED.DEP ---
ED Disposition - Plan for ED Patient: Disposition: Home or Assisted Living Chief Complaint: Flank Pain Instructions: ED Flank Pain Uncertain Cause Prescriptions: Naproxen [Naprosyn] 500 mg PO BID PRN #20 tab Referrals: Alexandria Mejia NP-C [Primary Care Provider] - Joey Duarte MD [STAFF PHYSICIAN] -
[2018-05-13 17:42] VITALS: BP 113/70; PULSE 64; RESP 16; O2SAT 95
--- NOTE | 2018-05-13 17:43 | ED.RN ---
REVIEWED D/C INSTRUCTIONS, FOLLOW UP CARE, PRESCRIPTION, AND S/S THAT WOULD WARRANT A RETURN TO THE ED WITH PT. PT VERBALIZED AN UNDERSTANDING AND DENIES FURTHER QUESTIONS FOR THIS RN. PT SKIN P/W/D, RESP EVEN AND UNLABORED, PT A&O X 3, NO DISTRESS NOTED. PT AMBULATED OUT OF ED, GAIT STEADY.
== END 2018-05-13 17:44 | disposition home or self-care (01) ==
PROVIDERS: Emergency Provider Emergency Medicine; Family Provider Nurse Practitioner Family; PCP Nurse Practitioner Family
DX: R10.9 Unspecified abdominal pain (principal); R31.9 Hematuria, unspecified; N83.202 Unspecified ovarian cyst, left side; K63.89 Other specified diseases of intestine; N20.0 Calculus of kidney; F41.9 Anxiety disorder, unspecified; F32.9 Major depressive disorder, single episode, unspecified; Z87.442 Personal history of urinary calculi; Z79.899 Other long term (current) drug therapy
CPT/HCPCS: 74176; 80048; 81001; 84703; 85025; 96374; 96375; 99284; A4216

== ENCOUNTER 2019-11-18 21:54 | Emergency (ER) | payer MEDICAID, SELFPAY ==
[2019-11-18 21:54] VITALS: BP 129/112; PULSE 86; RESP 15; TEMP 36.5; O2SAT 96; BMI 30.1
--- NOTE | 2019-11-18 22:10 | ED.VISSUMM ---
- ER Visit Summary Date of Service: 11/18/19 Chief Complaint: Right knee pain History of Present Illness: The patient is a 44 F who presents with right knee pain that is been constant for the past week. Patient states she stepped in a hole and twisted her right knee 1 week ago. Patient states that yesterday she was kneeling down to plug in her phone when she felt a pop in her right knee. Patient states the pain is sharp. Patient states the pain is worse with kneeling and with palpation. Patient denies any paresthesias or weakness. Patient denies any other injuries. Physical Examination: Vital signs are stable. Patient is afebrile. Patient is in no acute distress. Musculoskeletal exam reveals tenderness over the medial aspect of the right knee. There is no effusion. There is no edema or ecchymosis. There is no bony crepitance or step-off. Range of motion was limited in flexion of the right knee secondary to pain. There is no laxity. However, the patient was guarding on exam. Pedal pulses are equal bilaterally. There are no sensory deficits noted. There is no calf tenderness or edema. Test Results: X-rays of the right knee were obtained. There is no acute fracture or dislocation. This was interpreted by the radiologist and myself. Emergency Department Course and Treatment: Patient was given an ice pack. Patient was instructed to continue using ice to the area. Patient was instructed to take Tylenol or ibuprofen as needed for pain. Patient was instructed to keep the leg elevated. Patient was instructed to follow-up with her primary care physician in 5 to 7 days. Patient understood and was agreeable with the plan. All questions were answered. Disposition: Discharge home Impression: 1. Right knee pain This note was generated with [employer] software. It may contain incorrect words, spelling, and punctuation that were not noted in review of the chart prior to signing ED Disposition - Plan for ED Patient: Disposition: Home or Assisted Living Diagnosis: Right knee pain Instructions: KNEE PAIN, Uncertain Cause Referrals: Alexandria Mejia NP-C [Primary Care Provider] - 5-7 Days
--- NOTE | 2019-11-18 22:14 | RAD_ITS ---
STUDY: X-RAY - RIGHT KNEE REASON FOR EXAM: Female, 44 years old. Right knee pain after twisting injury yesterday TECHNIQUE: 4 view(s) of the knee. COMPARISON: None. FINDINGS: Normal visualized distal femur. Normal visualized proximal tibia and fibula. Normal proximal tibiofibular articulation. Normal medial femorotibial compartment. Normal lateral femorotibial compartment. Normal patellofemoral articulation. The soft tissue structures are unremarkable. RAD/Knee 4 or More Views IMPRESSION: Normal x-ray examination of the knee. Electronically Signed: Tommy Valentin DO at 22:40 EDT Tel [phone], Service support ,
[2019-11-18 22:48] VITALS: BP 129/72
== END 2019-11-18 22:49 | disposition home or self-care (01) ==
LOC: ED 22:17
PROVIDERS: Emergency Provider Emergency Medicine; PCP Nurse Practitioner Family
DX: M25.561 Pain in right knee (principal); X50.1XXA Overexertion from prolonged static or awkward postures, initial encounter; Y93.9 Activity, unspecified; Y92.9 Unspecified place or not applicable; F32.9 Major depressive disorder, single episode, unspecified; Z87.442 Personal history of urinary calculi; Z79.899 Other long term (current) drug therapy
CPT/HCPCS: 73564; 99282

== ENCOUNTER 2020-10-24 21:40 | Emergency (ER) | payer MEDICAID, SELFPAY ==
[2020-10-24 21:41] VITALS: BP 149/96; PULSE 78; RESP 15; TEMP 36.3; O2SAT 97; BMI 31.8
--- NOTE | 2020-10-24 22:11 | CT_ITS ---
HISTORY: Kidney Stone TECHNIQUE: Helically acquired images were obtained of the abdomen and pelvis without oral or IV contrast. A radiation dose optimization technique was used for this scan. COMPARISON: The [address] scans of the abdomen and pelvis from May 13, March 18, and February 16, 2018. FINDINGS: # of images incl. paperwork: 498 LUNG BASES: Trace dependent atelectasis. Minimal scarring and prominence of pericardial fat within the medial aspect of the lingula. CT abdomen: Bones are unremarkable. The gallbladder remains. Liver, spleen, pancreas, and adrenal glands are normal. The kidneys are normal. The aorta is normal. There is no intra-or extrahepatic biliary ductal dilatation. CT pelvis: No ascites is present. The metal appears to be present within the vagina, perhaps not near the cervix. Additionally, this could be postoperative changes to the urethra.. The appendix is not identified. The bladder is decompressed. Bowel gas pattern is normal. CT/Abdomen/Pelvis without Cont IMPRESSION: Metal likely within the region of the urethra. Recommend correlation to surgical history. Individualized dose optimization techniques were used for this CT. at 5528 Reported and signed by: Austin Garza MD Electronically Signed: Austin Garza MD at 23:48 EST Tel , Service support ,
--- NOTE | 2020-10-24 22:12 | ED.DCSUM_ITS ---
History of Present Illness Chief Complaint: Back Informant: Patient Onset: Yesterday Context: Gradual Onset Timing: Continuous Current Severity: Moderate Maximum Severity: Moderate Narrative: Patient is a 45-year-old female with history of kidney stone who presents to the emergency department back pain. Patient states that 2 days ago, she was outdoors. She slipped on ice and fell. She landed directly on her back. She did not strike her head or lose consciousness. She did however bite her tongue. She states that the next day, she was mildly sore but nothing significant. She did notice that she began to have some dysuria and frequency. Today, she began to have more suprapubic pain and pain in her left flank. She denies nausea or vomiting. She denies any weakness of the legs. She denies any numbness in her groin. She is had no difficulty moving her bowels. Prior similar symptoms: Yes Recent Illness/Hospitalization: No Past Medical History - Allergies and Home Meds Allergies/Adverse Reactions: Allergies No Known Allergies Allergy (Verified 05/13/18 14:58) Primary Care Physician: Alexandria Mejia NETWORK OPERATIONS SPECIALIST, NETWORK OPERATIONS SPECIALIST-C [Primary Care Provider] - Prior records reviewed: Yes Past Medical History: - - Prior kidney stone Surgical History: noncontributory Smoking Status: Former smoker - Family History Maternal Family History: Reports: No pertinent history Paternal Family History: Reports: No pertinent history Review of Systems General: Denies: Chills, Fever, Sweats Eyes: Denies: Visual changes - bilaterally, Diplopia ENT: Denies: Rhinorrhea, Sore throat Cardiovascular: Denies: Chest pain, Palpitations Respiratory: Denies: Dyspnea, Cough, Dyspnea on exertion Gastrointestinal: Denies: Abdominal pain, Nausea, Vomiting, Diarrhea, Melena, Hematochezia Genitourinary: Reports: Dysuria. Denies: Hematuria, Frequency Musculoskeletal: Reports: Back pain. Denies: Extremity Pain Skin: Denies: Rash, Wounds Neurological: Denies: Headache, Weakness, Numbness Physical Exam Vital Signs/Narrative: Vital Signs Temp Pulse Resp BP Pulse Ox 10/24/20 21:41 97.3 F L 78 15 149/96 H 97 Inital Vital Signs reviewed: Yes General: Well nourished, Well developed, No Acute Distress Head: Normocephalic, Atraumatic Eyes: Perrl, EOMI ENT: Moist mucous membranes, No rhinorrhea Neck: Supple, Nontender Cardiovascular: Regular rate, Regular rhythm, No murmurs Respiratory: No distress, CTA bilaterally, Chest nontender Abdomen: Soft, Nontender, Nondistended, Normal bowel sounds Back: Nontender, Normal Inspection Extremities: Nontender, No edema Skin: Normal color, No rash Neurological: Alert, Oriented x3, Cranial nerves II-XII grossly intact, Normal Strength, Normal Sensation Psychological: Normal affect, Normal Mood Diagnostic/Tx/Re-eval Clinical Impression(s) from Imaging Studies Abdomen/Pelvis CT 10/24/20 22:11 IMPRESSION: Metal likely within the region of the urethra. Recommend correlation to surgical history. Individualized dose optimization techniques were used for this CT. at 8059 Reported and signed by: Austin Garza MD Electronically Signed: Austin Garza MD at 23:48 EST Tel , Service support , Abnormal Lab Results 10/24/20 10/24/20 10/24/20 22:00 22:46 22:46 WBC 9.1 RBC 4.36 Hgb 12.7 Hct 38.2 MCV 87.6 MCH 29.1 MCHC 33.2 RDW Std Deviation 43.1 RDW Coeff of Rosetta 13.4 Plt Count 229 MPV 10.4 Immature Gran % (Auto) 0.300 Neut % (Auto) 59.0 Lymph % (Auto) 30.0 Rice % (Auto) 8.8 Eos % (Auto) 1.0 Baso % (Auto) 0.9 Absolute Neuts (auto) 5.4 Absolute Lymphs (auto) 2.72 Nucleated RBC % 0 Sodium 139 Potassium 3.5 Chloride 107 Carbon Dioxide 25.0 Anion Gap 7 BUN 27 H Creatinine 0.86 Estim Creat Clear Calc 66.90 Est GFR (MDRD) Af Amer 91 Est GFR (MDRD) Non-Af 75 BUN/Creatinine Ratio 31.5 H Glucose 89 Calcium 9.1 Urine Color Yellow Urine Clarity Clear Urine pH 6.0 Ur Specific [place] 1.025 Urine Protein 15 H Urine Glucose (UA) Normal Urine Ketones Negative Urine Occult Blood 250 H Urine Nitrite Negative Urine Bilirubin Negative Urine Urobilinogen Normal Ur Leukocyte Esterase Negative Urine RBC > 100 SEEN Urine WBC 0-5 SEEN Ur Squamous Epith Cells 0-5 SEEN Urine Bacteria RARE Urine Mucus 0 SEEN Urine Test Negative - Medical Decision Making Patient presents with back pain after fall. However, her symptoms have changed to be left-sided flank pain. She is also had some increased urinary frequency and hesitancy. She does have a history of kidney stones and states this feels similar. She has no red flag symptoms. Urine was obtained which showed blood but no evidence of infection. Labs are unremarkable. Patient underwent CT. I do suspect that she likely has a small stone that is not acutely visualized. There is no significant hydronephrosis. On reevaluation, she is more comfortable. At this point, the patient be discharged home. Impression 1. Mechanical fall 2. Nonobstructing left urolithiasis ED Disposition - Plan for ED Patient: Instructions: ED Kidney Stone w/ Colic Prescriptions: Hydrocodone Bitart/Apap 5-325 [[place] 5MG-325MG] 1 tab PO Q6H PRN PRN 3 Days #10 tab PRN Reason: Pain Prescription Printed Ondansetron [Zofran Odt] 4 mg PO Q8H PRN PRN #10 tab PRN Reason: Nausea Prescription Printed Referrals: Alexandria Mejia NP, NETWORK OPERATIONS SPECIALIST-C [Primary Care Provider] -
[2020-10-24] MEDS: 0.9% Normal Saline 1,000 ML 250 ML IV (22:45)
[2020-10-24] MEDS: Ondansetron 4 MG/2 ML Vial IV (22:45)
[2020-10-24] MEDS: Ketorolac 15 MG/ML Vial IV (22:45)
[2020-10-24 23:01] LABS: Absolute Lymphocyte Count 2.72 X10^3/uL (0.83-4.51); Absolute Neutrophil Count 5.4 X10^3/uL (2.0-7.7); Basophil# 0.08 X10^3/uL; Basophil% 0.9 % (0-1); Eosinophil# 0.09 X10^3/uL; Hematocrit 38.2 % (37-47); Hemoglobin 12.7 g/dL (12.0-15.0); Lymphocyte # 2.72 X10^3/ul (4.0); Mean Corp Hgb Conc 33.2 g/dL (32-36); Mean Corpuscular Hgb 29.1 pg (27.0-32.0); Mean Corpuscular Volume 87.6 fL (81-99); Mean Platelet Vol. 10.4 fl (6.2-12.0); Monocyte% 8.8 % (0-10); NRBC Flagged by Analyzer 0 % (0-5); Neutrophil # 5.35 X10^3/uL (2.7-7.7); Platelet Count 229 K/mm3 (150-450); RBC Distribution Width CV 13.4 % (11.6-14.6); RBC Distribution Width SD 43.1 fl (35.1-43.9); Red Blood Count 4.36 M/mm3 (4.2-5.4); White Blood Count 9.1 K/mm3 (4.4-11.0)
[2020-10-24 23:19] LABS: Anion Gap 7 (5-15); BUN 27 mg/dL (7-18); BUN/Creat Ratio 31.5 RATIO (10-20); Calcium,Total 9.1 mg/dL (8.5-10.1); Chloride 107 mmol/L (98-107); Creatinine, Serum 0.86 mg/dL (0.55-1.02); EST Glomerular Filtration Rate 75 mL/min (>60); Est Glom Filt Rate - Afr Amer 91 mL/min (>60); Glucose 89 mg/dL (74-106); Potassium 3.5 mmol/L (3.5-5.1); Sodium Level 139 mmol/L (136-145)
[2020-10-24 23:21] LABS: Mucous, Urine 0 SEEN /hpf (<or=2+)
[2020-10-24 23:30] LABS: Color, Urine Yellow (Yellow); Glucose, Dipstick Normal (Normal); Ketone-Dipstick Negative (Negative); Leukocyte Esterase-Dipstick Negative /ul (Negative); Nitrite-Dipstick Negative (Negative); Occult Blood-Urine 250 /ul (Negative); Protein-Dipstick 15 mg/dl (Negative); Specific Gravity, Urine 1.025 (1.002-1.030); Urine Bilirubin Dipstick Negative (Negative); Urine Clarity Clear (Clear); Urine Urobilinogen Normal (Normal)
[2020-10-24 23:34] LABS: Internal QC Validated? YES +Cl - CLEAR BKGD; Pregnancy, Urine Negative Negative
[2020-10-24 23:36] LABS: Red Blood Cells-Urine > 100 SEEN /hpf (0-5); Squamous Epithelial Cells - UA 0-5 SEEN /hpf (5-10); White Blood Cells 0-5 SEEN /hpf (0-5)
[2020-10-24 23:37] LABS: Bacteria RARE /hpf (None Seen)
[2020-10-24 23:40] VITALS: BP 145/82; PULSE 71; RESP 18; O2SAT 98
[2020-10-25] MEDS: Morphine 4 MG/ML Syringe IV (00:03)
[2020-10-25 02:02] VITALS: BP 128/78; PULSE 58; RESP 16
== END 2020-10-25 02:02 | disposition home or self-care (01) ==
LOC: ED 23:00
PROVIDERS: Emergency Provider Emergency Medicine; PCP Nurse Practitioner Family
DX: N20.9 Urinary calculus, unspecified (principal); M54.9 Dorsalgia, unspecified; W00.0XXA Fall on same level due to ice and snow, initial encounter; Y93.9 Activity, unspecified; Y92.9 Unspecified place or not applicable; Y99.9 Unspecified external cause status; Z79.899 Other long term (current) drug therapy; Z87.442 Personal history of urinary calculi; Z87.891 Personal history of nicotine dependence
CPT/HCPCS: 74176; 80048; 81001; 81025; 85025; 96361; 96374; 96375; 99283; J7030; A4216; J2405

== ENCOUNTER 2020-12-22 03:56 | Emergency (ER) | payer MEDICAID, SELFPAY ==
[2020-12-22 03:57] VITALS: BP 129/110; PULSE 90; RESP 20; TEMP 35.3; O2SAT 96; BMI 38.6
[2020-12-22 04:01] VITALS: BP 143/93
--- NOTE | 2020-12-22 04:04 | ED.VISSUMM ---
- ER Visit Summary Date of Service: 12/22/20 Chief Complaint: Sore throat, cough, headache, achiness History of Present Illness: The patient is a 45 F who presents with the above symptoms. She has had this for 3 days. She states she has a headache that is throbbing in nature. She is achy all over her body and has felt chilled. She has had a cough is been mildly productive of yellow sputum. She also complains of a sore throat which she feels like is actually improving. She came in today because of the achiness. She denies any known exposures to Covid however, she already had Covid back in May 2020. She did not check her temperature at home and she does not have a thermometer. Tylenol and ibuprofen have not been helping. Physical Examination: Vital signs reviewed. HEENT exam unremarkable. Heart is regular rate and rhythm without murmurs. Lungs are clear to auscultation. Abdomen is soft and nontender. Extremities reveal no edema. Skin exam normal. Neurologic exam normal. Test Results: None performed Emergency Department Course and Treatment: Patient likely has an upper respiratory infection. Its low likelihood that it is Covid since she already has had it. She does not appear ill. Her pulse ox is 96% on room air. I will give her a dose of Toradol here to help with her body aches. I will give her Mucinex D to take at home. She will follow-up with her PCP. Treatment Plan: [] Disposition: Discharge Impression: URI This note was generated with [employer] dictation software. It may contain incorrect words, spelling, and punctuation that were not noted in review of the chart prior to signing ED Disposition - Plan for ED Patient: Disposition: Home or Assisted Living Instructions: ED URI, Viral, No Abx (Adult) Prescriptions: Guaifenesin/Pseudoephedrne HCl [Mucinex D ER 600-60 mg Tablet] 1 each PO BID #14 tab.er.12h Transmission Status: Pending to [id number] Referrals: Alexandria Mejia NP, BACKEND JAVA DEVELOPER-C [Primary Care Provider] -
[2020-12-22] MEDS: Ketorolac 60 MG/2 ML Vial IM (04:12)
[2020-12-22 04:32] VITALS: BP 143/89; PULSE 89; RESP 18
== END 2020-12-22 04:33 | disposition home or self-care (01) ==
LOC: ED 04:11
PROVIDERS: Emergency Provider Emergency Medicine; PCP Nurse Practitioner Family
DX: J06.9 Acute upper respiratory infection, unspecified (principal); Z86.16 Personal history of COVID-19
CPT/HCPCS: 96372; 99283

== ENCOUNTER 2020-12-26 06:26 | Emergency (ER) | payer MEDICAID, SELFPAY ==
[2020-12-26 06:27] VITALS: BP 128/90; PULSE 84; RESP 16; TEMP 36.1; O2SAT 98; BMI 38.6
[2020-12-26 06:30] VITALS: BP 134/87; PULSE 74; RESP 16; TEMP 36.1; O2SAT 98
--- NOTE | 2020-12-26 07:05 | EKG12_ITS ---
Test Reason : Blood Pressure : / mmHG Vent. Rate : 066 BPM Atrial Rate : 066 BPM P-R Int : 162 ms QRS Dur : 092 ms QT Int : 412 ms P-R-T Axes : 036 008 020 degrees QTc Int : 431 ms Normal sinus rhythm Normal ECG Confirmed by ARIELLA GRAY, BRUNA ([id number]), editor farm journal PREM PANDYA ([id number]) on 12/27/2020 9:15:54 AM Referred By: YANNA Confirmed By:BRUNA KRISHNAN MD
--- NOTE | 2020-12-26 07:07 | CT_ITS ---
STUDY: CTA CHEST REASON FOR EXAM: Female, 45 years old. Hemoptysis chest pain RADIATION DOSAGE (If Supplied By Facility): CTDIvol = ( 12.54 ) mGy, DLP = ( 494.10 ) mGycm TECHNIQUE: The examination was performed with the intravenous administration of IV 100mL Isovue-370. Post-processing of the angiographic images was performed, with multiplanar reformation and 3D reconstruction. Individualized dose optimization techniques were used for this CT. COMPARISON: Comparison is made with prior examination dated 09/18/2016. FINDINGS: Normal enhancement of the main pulmonary artery and right and left pulmonary arteries. Normal enhancement of the bilateral peripheral pulmonary arteries. There is no demonstrated pulmonary embolism. Normal thoracic aorta and visualized great vessels. There is no demonstrated aortic dissection. Normal heart and pericardium. Normal mediastinum. Normal hilar regions. Normal visualized trachea and bronchi. The lungs are well expanded. Normal pulmonary parenchyma. Normal pleura. Normal chest wall structures. Normal osseous structures. Normal visualized upper abdomen. CT/CTA Chest W/WO Contrast IMPRESSION: Normal CTA chest examination, without a demonstrated pulmonary embolism or arterial dissection. Electronically Signed: Samuel Robert MD at 8:54 EDT , Service support ,
--- NOTE | 2020-12-26 07:21 | EX.ED.DYSGE1 ---
HPI History of Present Illness Chief Complaint: Cough Informant: patient Narrative Narrative: 45-year-old female presents with cough and hemoptysis. Patient states she got sick with nasal congestion and cough about 1 week ago. She was seen in the emergency department on Thursday was diagnosed with upper respiratory infection. She states she was started on Mucinex. She states she has had chills and body aches. She states that during the night she had a strong coughing fit. She could not stop so she went to the bathroom and she coughed up phlegm that was pink-tinged. Coughing subsided and she went back to bed and then had the desire to cough again and she coughed up what she describes as a red blood clot. She notes some generalized chest soreness particularly on the left lower left flank area. She denies taking any prescription medicines. No prior DVT PE. She states she feels winded walking from the car to the emergency department. [facility] Medical History Kidney stones Home Medications albuterol sulfate [Ventolin HFA] 2 puff INHALATION Q4H PRN PRN #1 inhaler 12/26/20 [Rx Last Taken Unknown] prednisone 60 mg PO DAILY #15 tablet 12/26/20 [Rx Last Taken Unknown] Allergy/AdvReac Type Severity Reaction Status Date / Time No Known Allergies Allergy Verified 12/26/20 06:30 no surgical history (Noncontributory) Social History Smoking Status: Never smoker [facility] ED Constitutional Constitutional ED: Reports chills; Denies weight loss Eyes Eyes: Denies change in vision or diplopia ENT ENT ED: Reports rhinorrhea and other Details: Nasal congestion ; Denies ear pain or sore throat Cardiovascular Cardiovascular: Reports chest pain; Denies orthopnea, palpitations or racing heartbeat Respiratory/Chest Respiratory/Chest: Reports cough, dyspnea, sputum and other Details: Hemoptysis ; Denies orthopnea Gastrointestinal Gastrointestinal: Denies abdominal pain, diarrhea, nausea or vomiting Genitourinary Genitourinary ED: Denies dysuria, hematuria or urinary frequency Musculoskeletal Musculoskeletal: Reports myalgias; Denies arthralgias Integumentary Denies abscess or rash Neurologic Neurologic: Denies headache(s) or weakness Psychiatric Psychiatric: Denies anxiety, depression, suicidal ideation or suicidal thoughts Endocrine Endocrinology: Denies polydipsia, polyphagia or polyuria Allergic/Immunologic Allergic/Immunologic ED: Denies mouth swelling, tongue swelling or urticaria EXAM Physical Exam Const Vital Signs: 12/26/20 06:27 12/26/20 06:30 12/26/20 06:32 Temperature 96.9 F L 96.9 F L Temperature Source Oral Oral Pulse Rate 84 74 Respiratory Rate 16 16 Respiratory Depth Normal Respiratory Pattern Normal Blood Pressure 128/90 H 134/87 H Blood Pressure Mean 102 102 Pulse Ox 98 98 Oxygen Delivery Method Room Air Room Air 12/26/20 07:25 Temperature Temperature Source Pulse Rate 66 Respiratory Rate 18 Respiratory Depth Respiratory Pattern Blood Pressure Blood Pressure Mean Pulse Ox 100 Oxygen Delivery Method Room Air Positive well nourished, well developed and obese General Appearance ED: well developed Nutritional Appearance: obese HEENT Reports normocephalic, head/scalp atraumatic and moist mucous membranes HEENT Narrative: Nasal congestion Eyes PERRL and EOMs intact bilaterally Neck no lymphadenopathy, supple and no JVD Chest Wall Chest Narrative: Mild chest tenderness to palpation Resp normal respiratory effort and clear to auscultation bilaterally Cardio regular rate, regular rhythm and no murmurs GI normal to inspection, nondistended, normoactive bowel sounds and non-tender Palpation: soft Back/Spine no CVA tenderness and normal ROM Extremity normal to inspection General Extremety ED: Negative for edema General Extremity: Negative for edema Neuro oriented x3 and CN's II-XII intact bilaterally Sensorium / Orientation: alert Motor Exam: strength 5/5 throughout Psych mental status grossly normal Mood & Affect: Negative for depressed or tearful Skin no rashes or lesions noted and no wounds MDM MDM MDM Narrative Medical decision making narrative: Patient received a DuoNeb with no significant change in symptoms. Basic blood work is normal. White count is normal. Troponin negative. EKG is sinus with no concerning features. CTA of the chest was performed to rule out pulmonary embolism. No pulmonary embolism was seen. No pneumonia seen. The patient has no consolidation consistent with continued bleeding. At this point patient will be discharged home with a short course of steroids and albuterol MDI. I think this is most likely a viral illness. She needs a work note for today. Lab Data Attestation: I reviewed the patient's lab results. Labs: Laboratory Results - last 24 hr 12/26/20 12/26/20 12/26/20 07:22 07:22 07:22 WBC 8.1 RBC 4.76 Hgb 13.6 Hct 42.3 MCV 88.9 MCH 28.6 MCHC 32.2 RDW Std Deviation 42.8 RDW Coeff of Rosetta 13.2 Plt Count 250 MPV 10.3 Immature Gran % (Auto) 0.700 Neut % (Auto) 55.7 Lymph % (Auto) 33.4 Edwards % (Auto) 7.4 Eos % (Auto) 2.1 Baso % (Auto) 0.7 Absolute Neuts (auto) 4.5 Absolute Lymphs (auto) 2.70 Nucleated RBC % 0 PT 13.6 INR 1.1 APTT 47.7 H Sodium 140 Potassium 3.8 Chloride 109 H Carbon Dioxide 27.0 Anion Gap 4 L BUN 16 Creatinine 1.00 Estim Creat Clear Calc 57.53 Est GFR (MDRD) Af Amer 76 Est GFR (MDRD) Non-Af 63 BUN/Creatinine Ratio 16.0 Glucose 94 Calcium 8.9 Total Bilirubin 0.80 AST 13 L ALT 31 Alkaline Phosphatase 96 Troponin I < 0.015 Total Protein 7.6 Albumin 3.6 Globulin 4.0 Albumin/Globulin Ratio 0.9 Radiography Diagnostic Testing: Radiology Impression Chest CTA 12/26/20 07:07 IMPRESSION: Normal CTA chest examination, without a demonstrated pulmonary embolism or arterial dissection. Electronically Signed: Samuel Robert MD at 8:54 EDT , Service support , EKG Initial EKG: Attestation: I personally reviewed and interpreted this EKG as follows: Interpretation: Sinus Rhythm Comments: EKG demonstrates a normal sinus rhythm at a rate of 66. No ectopy. No ACS Discharge Plan Triage Chief Complaint: Cough ED Provider: Meng Bender Dx/Rx/DC Orders Clinical Impression: Bronchitis, Cough with hemoptysis Instructions: ED Bronchitis, No Antibiotic (Adult), ED Hemoptysis Prescriptions: New prednisone 20 MG tablet 60 mg PO DAILY Qty: 15 RF: 0 albuterol sulfate [Ventolin HFA] 1 INHALER inhaler 2 puff inhalation Q4H PRN PRN (Reason: Wheezing) Qty: 1 RF: 0 Discontinued pseudoephedrine-guaifenesin 1 EACH tablet extended release 12 hr 1 each PO BID Qty: 14 RF: 0 Stand Alone Forms: ED Work / School Excuse Primary Care Provider: Alexandria Mejia NP Referrals: Alexandria Mejia [employer]PERVISOR [employer]ING, SUPERVISOR [employer]ING-C [Primary Care Provider] - 1 Week Disposition Patient Disposition: Home, self care
[2020-12-26 07:25] VITALS: PULSE 66; RESP 18; O2SAT 100
[2020-12-26] MEDS: Ipratropium/Albuterol Sulfate 3 ML AMPUL.NEB INHALATION (07:25)
[2020-12-26] MEDS: 0.9% Normal Saline 1,000 ML 1000 ML IV (07:26)
[2020-12-26 07:28] LABS: Absolute Neutrophil Count 4.5 X10^3/uL (2.0-7.7); Basophil# 0.06 X10^3/uL; Basophil% 0.7 % (0-1); Eosinophil# 0.17 X10^3/uL; Eosinophils% 2.1 % (0-5); Hematocrit 42.3 % (37-47); Hemoglobin 13.6 g/dL (12.0-15.0); Lymphocyte % 33.4 % (19-41); Mean Corp Hgb Conc 32.2 g/dL (32-36); Mean Corpuscular Hgb 28.6 pg (27.0-32.0); Mean Corpuscular Volume 88.9 fL (81-99); Mean Platelet Vol. 10.3 fl (6.2-12.0); Monocyte% 7.4 % (0-10); NRBC Flagged by Analyzer 0 % (0-5); Neutrophil % 55.7 % (47-70); Platelet Count 250 K/mm3 (150-450); RBC Distribution Width CV 13.2 % (11.6-14.6); RBC Distribution Width SD 42.8 fl (35.1-43.9); Red Blood Count 4.76 M/mm3 (4.2-5.4); White Blood Count 8.1 K/mm3 (4.4-11.0)
[2020-12-26 07:46] LABS: ALB/GLOB Ratio 0.9 RATIO (0.9-2.4); AST(SGOT) 13 U/L (15-37); Alanine Aminotransfer ALT/SGPT 31 U/L (13-56); Albumin, Serum 3.6 g/dL (3.2-5.0); Alkaline Phosphatase 96 U/L (45-117); Anion Gap 4 (5-15); BUN 16 mg/dL (7-18); Calcium,Total 8.9 mg/dL (8.5-10.1); Chloride 109 mmol/L (98-107); EST Glomerular Filtration Rate 63 mL/min (>60); Est Glom Filt Rate - Afr Amer 76 mL/min (>60); Estimated Creatinine Clearance 57.53 ml/min; Glucose 94 mg/dL (74-106); Potassium 3.8 mmol/L (3.5-5.1); Protein, Total 7.6 g/dL (6.4-8.2); Sodium Level 140 mmol/L (136-145)
[2020-12-26 08:20] LABS: International Normalized Ratio 1.1; Prothrombin Time (Protime)PT. 13.6 SECONDS (11.7-14.9)
[2020-12-26 08:21] LABS: Partial Thromboplast Time 47.7 Seconds (24.1-36.2)
[2020-12-26 09:27] VITALS: BP 126/79; PULSE 69; RESP 16; TEMP 36.4; O2SAT 100
== END 2020-12-26 09:39 | disposition home or self-care (01) ==
PROVIDERS: Emergency Provider Emergency Medicine; PCP Nurse Practitioner Family
DX: J40 Bronchitis, not specified as acute or chronic (principal); R04.2 Hemoptysis; E66.9 Obesity, unspecified; Z79.52 Long term (current) use of systemic steroids; Z79.899 Other long term (current) drug therapy; Z87.442 Personal history of urinary calculi
CPT/HCPCS: 71275; 80053; 84484; 85025; 85610; 85730; 93005; 94640; 96360; 96361; 99284; J7030; Q9967; A4216

== ENCOUNTER 2021-02-05 05:04 | Emergency (ER) | payer MEDICAID, SELFPAY ==
[2021-02-05 05:05] VITALS: BP 139/86; PULSE 74; RESP 16; TEMP 36.6; O2SAT 98; BMI 38.2
[2021-02-05 05:09] VITALS: BP 139/86; PULSE 79; RESP 15; TEMP 36.6; O2SAT 98
--- NOTE | 2021-02-05 05:18 | RAD_ITS ---
STUDY: X-RAY CHEST REASON FOR EXAM: Female, 46 years old. Shortness of breath. TECHNIQUE: Single AP portable view of the chest. COMPARISON: June 06, 2017. FINDINGS: No focal infiltrates or effusions. No pneumothorax. Normal size heart. Normal mediastinum and teresa. Normal visualized pulmonary arteries. Normal visualized aortic arch and descending thoracic aorta. Normal visualized thoracic spine. Normal visualized ribs, clavicles, and shoulders. There is no demonstrated abnormality of the visualized soft tissue structures of the upper abdomen. RAD/Chest 1 View (Portable) IMPRESSION: No acute cardiopulmonary disease. Electronically Signed: Harshad López MD at 6:08 EDT , Service support ,
--- NOTE | 2021-02-05 05:20 | EX.ED.DYSGE1 ---
HPI History of Present Illness Chief Complaint: General Illness Detail of Chief Complaint: URI Informant: patient Onset/Context/Timing Onset: Days (3) Context: Gradual Onset Timing: Continuous Current Severity: Moderate Maximum Severity: Moderate Worsened by: coughing Relieved by: nothing but only tried mucinex Narrative Narrative: Patient presenting with constellation of upper respiratory symptoms in addition to some mild chest tightness and wheezing, saying I feel sick. No fevers or chills. No loss of taste or smell. She had Covid last year and recovered, has not been vaccinated. No known sick contacts lately. She has been having lots of nasal congestion now along with facial/sinus pressure, mild clear rhinorrhea, and she feels like there is pressure in her head although she states it does not feel like a headache. She coughed up some blood streaks this morning. She denies any blood coming from her nose. Her ears are bothering her and her hearing is muffled, with pain in the left ear. She is not an asthmatic. She denies any GI symptoms or rashes. No myalgias. [facility] Medical History COVID-19 Kidney stones Home Medications albuterol sulfate [Ventolin HFA] 1 - 2 puff INHALATION Q4H PRN PRN #1 inhaler 02/05/21 [Rx Last Taken Unknown] amoxicillin-pot clavulanate 875 mg PO Q12H #20 tablet 02/05/21 [Rx Last Taken Unknown] benzonatate 200 mg PO TID PRN PRN #20 capsule 02/05/21 [Rx Last Taken Unknown] Allergy/AdvReac Type Severity Reaction Status Date / Time No Known Allergies Allergy Verified 02/05/21 05:14 Social History Smoking Status: Never smoker ROS ROS ED Constitutional Constitutional ED: Denies chills or fever(s) Eyes Eyes: Denies change in vision or diplopia ENT ENT ED: Reports as per HPI, change in voice, ear pain left, hoarseness, nasal congestion, rhinorrhea, sinus pain, sinus pressure and sore throat; Denies loss taste/smell Cardiovascular Cardiovascular: Reports chest pain; Denies palpitations Respiratory/Chest Respiratory/Chest: Reports as per HPI, cough, hemoptysis and wheezing Gastrointestinal Gastrointestinal: Denies abdominal pain, diarrhea, nausea or vomiting Genitourinary Genitourinary ED: Denies dysuria or hematuria Musculoskeletal Musculoskeletal: Denies back pain or neck pain Integumentary Denies abscess or rash Neurologic Neurologic: Denies headache(s), paresthesias or weakness Psychiatric Psychiatric: Denies anxiety or suicidal thoughts EXAM Physical Exam Const Vital Signs: 02/05/21 05:05 02/05/21 05:09 02/05/21 05:28 Temperature 97.8 F 97.9 F Temperature Source Temporal Temporal Pulse Rate 74 79 79 Respiratory Rate 16 15 16 Blood Pressure 139/86 H 139/86 H Blood Pressure Mean 103 103 Pulse Ox 98 98 Oxygen Delivery Method Room Air Room Air Positive well nourished and well developed General Appearance ED: well developed and NAD HEENT Reports moist mucous membranes HEENT Narrative: Right ear effusion without signs of infection. Left similarly except there is erythematous tympanic membrane. EAC normal bilaterally. Posterior oropharyngeal mild erythema without exudates, trismus, asymmetry. Diffuse sinus tenderness mostly ethmoid. Significant nasal turbinate edema bilaterally without any purulent discharge. normocephalic and atraumatic Eyes PERRL, EOMs intact bilaterally and conjunctivae normal Neck full ROM and supple Neck Narrative: Mild anterior tender submandibular lymphadenopathy bilaterally Resp normal respiratory effort, no retractions and no use of accessory muscles Auscultation: wheezes expiratory wheezes and throughout (And few transmitted upper airway sounds on the left that cleared after patient coughed hard); Negative for crackles, rales or rhonchi Cardio regular rate, regular rhythm and no murmurs Extremity normal to inspection General Extremety ED: Negative for edema, pulses abnormal or tenderness General Extremity: Negative for edema or pulses abnormal Neuro oriented x3, CN's II-XII intact bilaterally and no sensory deficits noted Sensorium / Orientation: awake and alert Motor Exam: strength 5/5 throughout Skin no rashes or lesions noted and no wounds MDM MDM MDM Narrative Medical decision making narrative: Chest x-ray my interpretation 1 view shows nothing acute or signs of lobar or atypical pneumonia. She was treated with an albuterol aerosol and had some improvement in her wheezing. She wanted something for the cough that she was given a dose of Robitussin-DM and offered a prescription for Tessalon which she has had success with in the past and took that in addition to a prescription for an albuterol inhaler and a prescription for Augmentin for the otitis media. I suspect the rest of this is viral in etiology and I discussed taking Afrin nasal spray as a decongestant to help her sinus symptoms. Outpatient follow-up with no improvement after 1 week. We discussed reasons to return. Radiography Chest X-Ray - ED: 1 View, Read by ED Physician, No Acute Disease and No Infiltrates Discharge Plan Triage Chief Complaint: General Illness ED Provider: Alfa Fernandes Dx/Rx/DC Orders Clinical Impression: Acute wheezy bronchitis, Sinusitis, Acute left otitis media Instructions: ED Bronchitis with Wheezing (Adult), ED Sinusitis (Antibiotic Treatment) Prescriptions: New benzonatate [benzonatate] 100 MG capsule 200 mg PO TID PRN PRN (Reason: Cough) Qty: 20 RF: 0 albuterol sulfate [Ventolin HFA] 1 INHALER inhaler 1 - 2 puff inhalation Q4H PRN PRN (Reason: Wheezing) Qty: 1 RF: 0 amoxicillin-pot clavulanate [amoxicillin-pot clavulanate] 875 MG tablet 875 mg PO Q12H Qty: 20 RF: 0 Primary Care Provider: Alexandria Mejia NP Referrals: Alexandria Mejia TELECOMMUNICATION EQUIPMENT REPAIRER, TELECOMMUNICATION EQUIPMENT REPAIRER-C [Primary Care Provider] - 1 Week if not improving Activity Restrictions/Additional Instructions: For decongestant that will potentially help the most with your sinus pressure, congestion, and sinus headache, use oxymetazoline/Afrin nasal spray. 2 sprays each nostril up to every 12 hours, no more than 3 days in a row, 15 minutes after administration you may apply gentle pressure blowing out while holding your nodes, and sometimes this can open your sinuses and allow them to drain, relieving your symptoms. Disposition Disposition: Home, self care
[2021-02-05] MEDS: Albuterol 2.5 MG/3 ML VIAL.NEB. INHALATION (05:27)
[2021-02-05 05:28] VITALS: PULSE 80; RESP 16
[2021-02-05] MEDS: guaiFENesin Dm 10 ML UDC PO (05:41)
[2021-02-05 05:56] VITALS: BP 134/80; PULSE 70; RESP 16; TEMP 36.7; O2SAT 98
== END 2021-02-05 05:58 | disposition home or self-care (01) ==
LOC: ED 05:49
PROVIDERS: Emergency Provider Emergency Medicine; PCP Nurse Practitioner Family
DX: J20.9 Acute bronchitis, unspecified (principal); R04.2 Hemoptysis; J32.9 Chronic sinusitis, unspecified; H66.92 Otitis media, unspecified, left ear; Z79.899 Other long term (current) drug therapy; Z86.16 Personal history of COVID-19
CPT/HCPCS: 71045; 94640; 99282

== ENCOUNTER → 2024-01-21 | Outpatient (CLI) | payer MEDICAID, SELFPAY | END | disposition home or self-care (01) | PROVIDERS: PCP Nurse Practitioner Family; Referring Provider Nurse Practitioner Family; Visit Provider Nurse Practitioner Family | DX: G47.19 Other hypersomnia (principal); R06.81 Apnea, not elsewhere classified; F51.3 Sleepwalking [somnambulism]; R51.9 Headache, unspecified; R06.83 Snoring; F32.5 Major depressive disorder, single episode, in full remission; E66.9 Obesity, unspecified | CPT/HCPCS: 95811 ==

== ENCOUNTER 2024-07-10 10:26 | Emergency (ER) | payer MEDICAID, SELFPAY ==
[2024-07-10 10:27] VITALS: BP 140/92; PULSE 87; RESP 18; TEMP 37; O2SAT 100
[2024-07-10 10:35] VITALS: BMI 41.0
[2024-07-10] MEDS: HYDROcodone Bitartrate/Apap 5/325 Tablet PO (11:23)
[2024-07-10 12:45] VITALS: BP 140/92; PULSE 80; RESP 18; TEMP 37; O2SAT 100
== END 2024-07-10 12:57 | disposition home or self-care (01) ==
PROVIDERS: Emergency Provider Emergency Medicine; PCP Nurse Practitioner Family; Visit Provider Emergency Medicine
DX: S93.402A Sprain of unspecified ligament of left ankle, initial encounter (principal); E11.9 Type 2 diabetes mellitus without complications; W10.9XXA Fall (on) (from) unspecified stairs and steps, initial encounter; X50.1XXA Overexertion from prolonged static or awkward postures, initial encounter; I10 Essential (primary) hypertension; E78.5 Hyperlipidemia, unspecified; E66.9 Obesity, unspecified
CPT/HCPCS: 73610; 73630; 99283